=== PATIENT | female | born 1975 | race Caucasian/White ===

== ENCOUNTER 2018-12-25 04:04 | Emergency (ER) | payer OTHER, MEDICAID, SELFPAY ==
[2018-12-25 04:21] VITALS: BP 166/88; PULSE 96; RESP 18; TEMP 36.4; O2SAT 100; BMI 35.2
--- NOTE | 2018-12-25 04:21 | DI.RAD.S_ITS ---
PROCEDURE: XR KNEE LT 3V INDICATIONS: pain and swelling TECHNIQUE: 3 views of the knee were acquired. COMPARISON: None. FINDINGS: Bones: No fractures or dislocations. Joint spaces appear preserved. No suspicious bony lesions. Soft tissues: There is a small to moderate joint effusion. No suspicious soft tissue calcifications. IMPRESSION: 1. No fracture or dislocation. 2. Small to moderate nonspecific joint effusion. Dictated by: Miki Bolton M.D. on 12/25/2018 at 9:31 Approved by: Miki Bolton M.D. on 12/25/2018 at 9:32
--- NOTE | 2018-12-25 04:23 | ED_ITS ---
HPI - General Adult General Chief complaint: Extremity Problem,Nontraumatic Stated complaint: left knee pain, feet pain Time Seen by Provider: 12/25/18 04:17 Source: patient Mode of arrival: ambulatory Limitations: no limitations History of Present Illness HPI narrative: Patient is a 43-year-old female here for evaluation of 2 issues. She states that she is having pain and swelling of her left knee. She states t hat approximately 1 year ago she sustained an injury to her right knee. She states that she ?hyper extended ?her knee. Since then she has had occasional pain and swelling. She states that over the past couple days the swelling has returned and has not improved. No redness. She states that she does have some feeling of instability. Has pain along the inside aspect of her knee. Has not had any x-rays or further evaluation of this by her primary doctor. She is also here for evaluation of swelling to her left foot and redness. she has not had any fevers. Has been in the garden working. Has not tried anything for symptoms prior to arrival. Related Data Previous Rx's Medication Instructions Recorded doxycycline hyclate 100 mg PO Q12H #20 cap 09/20/17 doxycycline hyclate 100 mg PO BID 7 Days #14 tab 12/25/18 Allergies Allergy/AdvReac Type Severity Reaction Status Date / Time acetaminophen [From VICODIN] AdvReac Unknown NAUSEA Unverified 12/09/17 11:49 hydrocodone [From VICODIN] AdvReac Unknown NAUSEA Unverified 12/09/17 11:49 ibuprofen [IBUPROFEN] AdvReac Unknown NAUSEA Unverified 12/09/17 11:49 INGREDIENT: NO KNOWN - NO Allergy Unknown Uncoded 12/09/17 11:49 KNOWN DRUG ALLERGY Review of Systems Constitutional Denies fever(s) ENT Ears, Nose, Mouth, and Throat: Denies disequilibrium Cardiovascular Denies chest pain and Denies dyspnea Respiratory Denies dyspnea Gastrointestinal Gastrointestinal: Denies abdominal pain Musculoskeletal Comments: Left knee pain and swelling Left ankle pain and swelling Integumentary/Breasts Comments: Redness around the left ankle Neurologic Denies paresthesias and Denies disequilibrium Hematologic/Lymphatic Denies easy bleeding and Denies easy bruising [facility] Medical History Healthy adult (Acute) Social History Smoking Status: Current every day smoker Social History Smoking Status: Current every day smoker Exam Initial Vital Signs Initial Vital Signs: Vital Signs Temperature 97.6 F 12/25/18 04:21 Pulse Rate 96 H 12/25/18 04:21 Respiratory Rate 18 12/25/18 04:21 Blood Pressure 166/88 H 12/25/18 04:21 Pulse Oximetry 100 12/25/18 04:21 Resp Effort & Inspection: normal respiratory effort Cardio Rate: regular rate Skin Other: Patient has redness on the inside aspect of her left foot. No blistering. No breaks in the skin noticed. Is warm to the touch Neuro General: alert, awake and oriented x3 Sensory Exam: no sensory deficits noted Extrem Other: Full range of motion of the left ankle. Patient left knee with an effusion. Tenderness to palpation along the medial joint line. No tenderness along the lateral joint line. No tenderness to palpation along the hamstrings. ACL MCL PCL and LCL intact with functional testing. Psych Appearance: grossly normal and well kempt Procedures Joint Aspiration Joint Asp./Inject. 1: Time Out Performed: Yes Side of body: left Joint Aspirated: knee Ultrasound Guidance: No Skin Prep: Chlorhexidine Local Anesthetic: lidocaine 1% Amount of anesthesia used (mL): 5 Needle Size Used: 18G Fluid Obtained: clear Total fluid obtained (mL): 45 Patient Tolerated Procedure: Well and No complications Complications: none Course Orders Ordered: ED Orders 12/25/18 04:21 XR knee LT 3V Stat 12/25/18 05:03 Body Fluid Culture Stat Cell Count w Diff Body Fluid Stat Crystals Body Fluid Stat Discontinued Medications Doxycycline Hyclate (Vibramycin) 100 mg PO NOW ONE Stop: 12/25/18 05:06 Vital Signs - 8 hr 12/25/18 04:21 Temperature 97.6 F Pulse Rate 96 H Respiratory Rate 18 Blood Pressure 166/88 H Pulse Oximetry 100 Medical Decision Making Imaging Data Knee x-ray: Attestation: I personally reviewed and interpreted this imaging study as follows: My impression: No fractures, no dislocations no acute pathology MDM Narrative Medical decision making narrative: X-ray shows no fractures. She does have an effusion of the left knee. I do suspect that she has got a medial meniscal disruption. I informed her that she needed to contact her primary doctor discussed the indications for an MRI. She does have an effusion of the knee. After discussion regarding the risks and benefits to include pain, introducing an infection (which is potentially slightly higher because of the cellulitis of her left foot), and the possible need for further interventions the patient opted to have her knee drained. It was drained as described above. 45 cc of fluid was obtained. This was sent for culture and cell count and crystals. Informed her that these would take several days to come back and that she needs to talk with her primary doctor about the results of these studies. Patient also has redness around her left foot and also with some warmth. She has full range of motion of her left ankle. I have low suspicion for septic joint. There are also no breaks in the skin however given the physical appearance I feel that cellulitis is a possibility. She was given a dose of doxycycline here in the emergency department was sent home with a prescription for this medication. She was given return precautions and follow-up instructions. She expressed understanding and agreement with plan. Discharge Plan Departure Patient Disposition: Home Clinical Impression: Effusion of knee joint, left, Cellulitis of left foot Left knee pain Qualifiers: Chronicity: chronic Qualified Code(s): M25.562 - Pain in left knee Instructions: Cellulitis, How To Perform RICE (Rest, Ice, Compress, Elevate), DI for Knee Effusion Activity Restrictions/Additional Instructions: The fluid that we drained off of your left knee was sent for studies that will take a couple days to return. You need to talk with your primary doctor about the results of these. He also need to talk with your primary doctor about the indications for an MRI of your knee. Take the antibiotics as directed for the infection in your foot. Return to the emergency department for any new or worsening symptoms Prescriptions: New doxycycline hyclate 100 mg tablet 100 mg PO BID 7 Days Qty: 14 RF: 0 No Action doxycycline hyclate 100 MG capsule 100 mg PO Q12H Qty: 20 RF: 0
[2018-12-25] MEDS: DOXYCYCLINE HYCLATE 100 MG TABLET PO (05:09)
[2018-12-25 05:10] VITALS: BP 172/91; PULSE 80; RESP 16; O2SAT 99
[2018-12-25 06:09] LABS: Body Fluid Red Blood Cells 4032 /uL; Body Fluid Tot Nucleated Cells 965 /uL
[2018-12-25 06:57] LABS: Body Fluid Appearance CLOUDY; Body Fluid Clotted? NO CLOTS PRESENT; Body Fluid Color YELLOW
[2018-12-25 07:01] LABS: Mononuclear WBC Body Fluid 98 %; Polynuclear WBC Body Fluid 2 %
== END 2018-12-25 05:10 | disposition home or self-care (01) ==
PROVIDERS: Emergency Provider Emergency Medicine
DX: M25.462 Effusion, left knee (principal); L03.116 Cellulitis of left lower limb
CPT/HCPCS: 20610; 73562; 87070; 87075; 87205; 89051; 89060; 99282; 99283

== ENCOUNTER → 2019-02-03 17:01 | Outpatient (CLI) | payer OTHER, MEDICAID, SELFPAY ==
[2019-02-03 17:53] LABS: Add Manual Diff / Slide Review NO; Basophils Absolute Auto 100 /uL (0-100); Eosinophils Absolute Auto 300 /uL (0-450); Eosinophils Percent Auto 1.7 % (2-4); Hematocrit 46.9 % (36-46); Hemoglobin 15.6 g/dL (12.0-16.0); Lymphocytes Absolute Auto 4100 /uL (1100-4500); Lymphocytes Percent Auto 27.7 % (25-40); Mean Corpuscular HGB Conc 33.3 % (30-36); Mean Corpuscular Hemoglobin 29.6 PG (26-34); Monocytes Absolute Auto 1400 /uL (0-900); Monocytes Percent Auto 9.2 % (3-14); Neutrophils Absolute Auto 8800 /uL (1500-7000); Neutrophils Percent Auto 60.4 % (50-75); Platelet Count 337 X10^3/uL (150-400); Red Blood Cell Count 5.27 X10^6/uL (4.0-5.2); Red Cell Distribution Width 13.9 % (11.6-14.8); White Blood Cell Count 14.6 X10^3/uL (4.5-11.0)
[2019-02-03 18:13] LABS: Blood Urea Nitrogen 15 mg/dL (7-17); Carbon Dioxide 28 mmol/L (22-32); Chloride 102 mmol/L (98-107); Estimated Glomerular Filt Rate > 60.0 mL/min (>60); Glucose 98 mg/dL (70-100); HEMOLYSIS < 15 (0-50); Sodium 138 mmol/L (137-145)
== END ==
PROVIDERS: PCP Hospitalist; Visit Provider Hospitalist
DX: I10 Essential (primary) hypertension (principal)
CPT/HCPCS: 36415; 80048; 85025

== ENCOUNTER 2019-05-04 13:36 | Outpatient (RCR) | payer OTHER, MEDICAID, SELFPAY ==
--- NOTE | 2019-05-04 17:30 | PT.OIE ---
Current Diagnoses Pain in unspecified knee (05/04/19) Past Medical History (Last Updated 02/03/19 @ 17:08 by Marleny Benavides MD) Arthralgia of knee (Acute) Healthy adult (Acute) HTN (hypertension) (Acute) Obesity (Acute) Visit Care Team Role Provider Type Marleny Benavides MD Attending Provider Physician Primary Care Provider Specialty: Internal Medicine Address: [address] [place] [address], [facility] Email: Physical Therapy Initial Evaluation PT-OP-B Current Condition Start: 05/04/19 10:57 Freq: Status: Active Protocol: Document 05/04/19 13:50 (Rec: 05/04/19 14:06 [email or web address]) Current Condition History of Current Condition Onset Date 3 months ago Current Complaints L knee apin History of Current Condition Pt is a 43 yo female who presents to clinic with L knee pain started 3 months ago. She stated she woke up one morning with severe L knee pain and did not recall any significant injury. She was unable to roll in bed and walk , along with significant difficulty bending her knee and any rotation. She describes her knee pain located at medial side of the knee joint. The pain is very sharp, and often feels like hyperextended and twisted. She said her symptoms went away the next day, but it came back after a month. And her pain suddenly got worse again with significant swelling and spontaneous hot/cold sensation . Pt went to ER 2 months ago and x-ray showed negative result, but she had fluid drawn out from her L knee at that time approx 8 oz. She states the result hasnt come back yet since then. She has difficulty squatting, walking stairs with heavy objects and walking with any twisting motions. These movements tend to build her fluid back and increasae her pain. Pt stated her insurance will not allow her to have MRI screening before seeing PT for evaluation. Prior Treatments and Tests X-ray from 3 months ago = negative findings fluid drawn from L knee Treatment Goals Patient/Caregiver Goals 1. Strengthen her knee and reduce pain 2. Being able to squat and climb stairs without discomfort. 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 Pt Take times to perform rotational movements Personal Factors Other Personal Factors That May Effect depression Therapy/Recovery PT-OP-D Balance Start: 05/04/19 10:57 Freq: Status: Active Protocol: Document 05/04/19 13:50 HH (Rec: 05/04/19 17:16 [email or web address]) Balance Tests Single Limb Standing Single Limb- Right >1 min Single Limb- Left 25s PT-OP-G Mobility & Gait Start: 05/04/19 10:57 Freq: Status: Active Protocol: Document 05/04/19 13:50 HH (Rec: 05/04/19 17:16 [email or web address]) OP Gait Assessment Gait Deviations General Gait Pattern Antalgic,Decreased Stride Length,Decreased Feet Clearance Factors Limiting Gait Function Factors Limiting Gait Function Decreased Activity Tolerance, Decreased Strength,Limited Range of Motion,Pain,Poor Balance Comments Gait Comments decreased heel strike on L LE and early heel raise during preswing. Increased WB on RLE also noted. PT-OP-J Posture/Palpation/Skin Start: 05/04/19 10:57 Freq: Status: Active Protocol: Document 05/04/19 13:50 HH (Rec: 05/04/19 17:16 [email or web address]) Posture Evaluation Position Standing Evaluation View Anterior Weight Distribution Weight Shifted Right,Decreased Wt.Bear on (L) Knee Posture (L) Excess Flexion PT-OP-K Range of Motion Start: 05/04/19 10:57 Freq: Status: Active Protocol: Document 05/04/19 13:50 HH (Rec: 05/04/19 17:16 [email or web address]) Knee Goniometric Range of Motion Knee Right Knee ROM WFL Yes Patient Position Supine Flexion Active (degrees) 135 Extension Active (degrees) 0 Left Knee ROM WFL No Patient Position Supine Flexion Active (degrees) 120 Extension Active (degrees) 7 PT-OP-L Special Tests Start: 05/04/19 10:57 Freq: Status: Active Protocol: Document 05/04/19 13:50 HH (Rec: 05/04/19 17:16 [email or web address]) Special Tests Knee Special Tests Valgus- 0 Degrees Test Results +ve Comments pain at medial joint line Valgus- 25 Degrees Test Results +Ve Comments pain at medial joint line Carlitos Test Test Results +VE Comments pain at medial joint line Lateral Pivot Shift Test Results +Ve Comments pain during R trunk rotation while standing on L LE PT-OP-M Strength Start: 05/04/19 10:57 Freq: Status: Active Protocol: Document 05/04/19 13:50 HH (Rec: 05/04/19 17:16 [email or web address]) Knee Strength Knee Manual Muscle Testing Right Flexion (S2) 5 Normal Extension (L3) 5 Normal Left Flexion (S2) 3+ Fair+ Extension (L3) 4+ Good+ Reason Not Measured Pain Comments pain during resisted knee extension (from 70 degrees to 0 degrees) PT-OP-T Assessment and Plan Start: 05/04/19 10:57 Freq: Status: Active Protocol: Document 05/04/19 13:50 (Rec: 05/04/19 17:16 [email or web address]) Physical Therapy Assessment Rehab Potential Rehabilitation Potential Excellent Evaluation Complexity Number of Personal Factors/Comorbidities 1-2 Number of Body Systems Impaired 1-2 Clinical Presentation at Evaluation Stable Impairments Impairments Activity Tolerance,Balance, Functional Activities, Functional Mobility,Gait,Pain, Posture,ROM,Soft Tissue Mobility,Strength,Transfers Goals strength Impairment decreased L knee strength Short Term Goal (STG) pt will increase 1/2 grade of MMT for her L knee so she could recover from squat position without using UE support. STG Duration 6 weeks Skilled Nursing Goal (LTG) pt will increase 1 full grade of MMT for her L knee so she could climb stair with step over pattern without support. LTG Duration 12 weeks ROM Impairment Pt knee ext = 7 and flexion = 120 Skilled Nursing Goal (LTG) Pt will be able to reach L knee ext <4 degrees and flexion >130 degrees so she will be able to perform full squat and single leg stance. LTG Duration 12 weeks LEFS Impairment pt scores 41 for LEFS Short Term Goal (STG) pt will be able to score <30 for LEFS to improve her quality of life. STG Duration 6 weeks Sales Technician Goal (LTG) pt will be able to score <20 for LEFS to improve her quality of life. LTG Duration 12 weeks Assessment Summary Assessment Pt is a low complexity with L knee pain since 3 months ago. Upon assessment, pt possibly suffers from L medial meniscal tear based on findings from positive lateral pivot test, valgus stress test, Carlitos test and appley compression which reproduced her medial joint line pain. Pt also presents decreased overall L knee strength and ROM (ext= 7 and flexion =120), along with decreased leg balance (L=25s, R= >1 min). In my professional opinion, i recommended pt to have MRI screening to rule out meniscal tear or any further tissue damage before she starts physical therapy. I also provided options and prognosis of surgical treatment vs conservative therapy for meniscal tear. Pt will be a good candidate for both options in order to assist pt return to her PLOF through neuromusculat reeducation, overall strengthening, postural mandaeism, ROM training and graded exposure. Physical Therapy Plan Frequency and Duration Frequency of Treatment 2x/Week Duration of Treatment 12 weeks Plan of Care Start Date 05/04/19 Plan of Care End Date 08/02/19 Therapeutic Interventions Therapeutic Interventions Aquatic Therapy,Balance Training,Gait Training,Home Exercise Program,Joint Mobilizations,Manual Therapy, Patient/Caregiver Education, Self-Care/Home Management,Soft Tissue Mobilization,Taping, Therapeutic Activities, Therapeutic Exercises Modalities Cold Pack/Ice Massage,Electric Stimulation,Hot Packs, Infrared Therapy,Ultrasound Hold Physical Therapy Reason For Hold Pending on MRI authorization and result. Next Visit Focus/Plan Next Note Type Re-Evaluation Next Visit Plan tx note / re-eval depends on pt's result
--- NOTE | 2019-06-21 16:29 | PT.OPDS ---
Current Diagnoses Pain in unspecified knee (05/04/19) Visit Care Team Role Provider Type Marleny Benavides MD Attending Provider Physician Primary Care Provider Specialty: Internal Medicine Address: [address] [place] [address], [facility] Email: Visit Number Visit Number 1 Discharge Summary PT-OP-B Current Condition Start: 05/04/19 10:57 Freq: Status: Active Protocol: Document 05/04/19 13:50 (Rec: 05/04/19 14:06 [id number]) Current Condition History of Current Condition Onset Date 3 months ago Current Complaints L knee apin History of Current Condition Pt is a 43 yo female who presents to clinic with L knee pain started 3 months ago. She stated she woke up one morning with severe L knee pain and did not recall any significant injury. She was unable to roll in bed and walk , along with significant difficulty bending her knee and any rotation. She describes her knee pain located at medial side of the knee joint. The pain is very sharp, and often feels like hyperextended and twisted. She said her symptoms went away the next day, but it came back after a month. And her pain suddenly got worse again with significant swelling and spontaneous hot/cold sensation . Pt went to ER 2 months ago and x-ray showed negative result, but she had fluid drawn out from her L knee at that time approx 8 oz. She states the result hasnt come back yet since then. She has difficulty squatting, walking stairs with heavy objects and walking with any twisting motions. These movements tend to build her fluid back and increasae her pain. Pt stated her insurance will not allow her to have MRI screening before seeing PT for evaluation. Prior Treatments and Tests X-ray from 3 months ago = negative findings fluid drawn from L knee Treatment Goals Patient/Caregiver Goals 1. Strengthen her knee and reduce pain 2. Being able to squat and climb stairs without discomfort. 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 Pt Take times to perform rotational movements Personal Factors Other Personal Factors That May Effect depression Therapy/Recovery PT-OP-D Balance Start: 05/04/19 10:57 Freq: Status: Active Protocol: Document 05/04/19 13:50 HH (Rec: 05/04/19 17:16 [email or web address]) Balance Tests Single Limb Standing Single Limb- Right >1 min Single Limb- Left 25s PT-OP-G Mobility & Gait Start: 05/04/19 10:57 Freq: Status: Active Protocol: Document 05/04/19 13:50 HH (Rec: 05/04/19 17:16 [email or web address]) OP Gait Assessment Gait Deviations General Gait Pattern Antalgic,Decreased Stride Length,Decreased Feet Clearance Factors Limiting Gait Function Factors Limiting Gait Function Decreased Activity Tolerance, Decreased Strength,Limited Range of Motion,Pain,Poor Balance Comments Gait Comments decreased heel strike on L LE and early heel raise during preswing. Increased WB on RLE also noted. PT-OP-J Posture/Palpation/Skin Start: 05/04/19 10:57 Freq: Status: Active Protocol: Document 05/04/19 13:50 HH (Rec: 05/04/19 17:16 [email or web address]) Posture Evaluation Position Standing Evaluation View Anterior Weight Distribution Weight Shifted Right,Decreased Wt.Bear on (L) Knee Posture (L) Excess Flexion PT-OP-K Range of Motion Start: 05/04/19 10:57 Freq: Status: Active Protocol: Document 05/04/19 13:50 HH (Rec: 05/04/19 17:16 [email or web address]) Knee Goniometric Range of Motion Knee Right Knee ROM WFL Yes Patient Position Supine Flexion Active (degrees) 135 Extension Active (degrees) 0 Left Knee ROM WFL No Patient Position Supine Flexion Active (degrees) 120 Extension Active (degrees) 7 PT-OP-L Special Tests Start: 05/04/19 10:57 Freq: Status: Active Protocol: Document 05/04/19 13:50 HH (Rec: 05/04/19 17:16 [email or web address]) Special Tests Knee Special Tests Valgus- 0 Degrees Test Results +ve Comments pain at medial joint line Valgus- 25 Degrees Test Results +Ve Comments pain at medial joint line Carlitos Test Test Results +VE Comments pain at medial joint line Lateral Pivot Shift Test Results +Ve Comments pain during R trunk rotation while standing on L LE PT-OP-M Strength Start: 05/04/19 10:57 Freq: Status: Active Protocol: Document 05/04/19 13:50 HH (Rec: 05/04/19 17:16 HH [email or web address]) Knee Strength Knee Manual Muscle Testing Right Flexion (S2) 5 Normal Extension (L3) 5 Normal Left Flexion (S2) 3+ Fair+ Extension (L3) 4+ Good+ Reason Not Measured Pain Comments pain during resisted knee extension (from 70 degrees to 0 degrees) PT-OP-T Assessment and Plan Start: 05/04/19 10:57 Freq: Status: Active Protocol: Document 06/21/19 16:27 HH (Rec: 06/21/19 16:29 [email or web address]) Physical Therapy Plan Discharge Physical Therapy Discharge Reasons No Longer Attending PT Discharge Comments Called pt via phone and she stated she just went to see her MD to request for MRI screen. She had kidney infection recently which limits her mobility and her symptoms has been the same since injury. D/C from PT today.
== END 2019-05-05 12:38 ==
LOC: PHYS 13:36
PROVIDERS: PCP Hospitalist; Visit Provider Hospitalist
DX: M25.569 Pain in unspecified knee (principal)
CPT/HCPCS: 97161

== ENCOUNTER 2019-06-13 14:08 | Emergency (ER) | payer OTHER, MEDICAID, SELFPAY ==
[2019-06-13] VITALS (7 sets, daily range): BP systolic 157–188; BP diastolic 73–98; PULSE 95–109; RESP 17–24; TEMP 37.2–37.7; O2SAT 90–99; BMI 36.0
[2019-06-13 14:40] LABS: Bilirubin Urine UA NEGATIVE (NEGATIVE); Color Urine UA YELLOW; Glucose Urine UA NEGATIVE (Negative); Ketones Urine UA NEGATIVE (NEGATIVE); Leukocyte Esterase Urine UA 3+ (NEGATIVE); Nitrite Urine UA NEGATIVE (Negative); Occult Blood Urine UA 3+ (Negative); Protein Urine UA 2+ (Negative); Urobilinogen Urine UA 0.2 E.U./dL (0.2)
--- NOTE | 2019-06-13 14:43 | DI.RAD.S_ITS ---
PROCEDURE: XR CHEST 1V INDICATIONS: chest pain TECHNIQUE: One view of the chest was acquired. COMPARISON: None. FINDINGS: Surgical changes and devices: None. Lungs and pleura: Lungs are clear. No pleural effusions or pneumothorax. Mediastinum: Mediastinal contours appear normal. Heart size is normal. Bones and chest wall: No suspicious bony lesions. Overlying soft tissues appear unremarkable. IMPRESSION: No acute cardiopulmonary findings. Dictated by: Zuri Valentine M.D. on 06/13/2019 at 14:59 Approved by: Zuri Valentine M.D. on 06/13/2019 at 14:59
[2019-06-13 14:46] LABS: Pregnancy Test Urine Negative (Negative)
[2019-06-13 15:04] LABS: Appearance Urine UA Slightly Cloudy; pH Urine UA 7.5 (4.5-8.0)
[2019-06-13 15:04] LABS: Add Manual Diff / Slide Review NO; Basophils Absolute Auto 100 /uL (0-100); Basophils Percent Auto 0.6 % (0-2); Eosinophils Absolute Auto 100 /uL (0-450); Eosinophils Percent Auto 0.6 % (2-4); Hematocrit 44.5 % (36-46); Hemoglobin 14.9 g/dL (12.0-16.0); Lymphocytes Absolute Auto 1600 /uL (1100-4500); Lymphocytes Percent Auto 10.3 % (25-40); Mean Corpuscular HGB Conc 33.4 % (30-36); Mean Corpuscular Hemoglobin 29.7 PG (26-34); Mean Corpuscular Volume 88.9 fL (80-100); Monocytes Absolute Auto 1500 /uL (0-900); Monocytes Percent Auto 10.2 % (3-14); Neutrophils Absolute Auto 11900 /uL (1500-7000); Neutrophils Percent Auto 78.3 % (50-75); Platelet Count 271 X10^3/uL (150-400); Red Blood Cell Count 5.01 X10^6/uL (4.0-5.2); Red Cell Distribution Width 13.6 % (11.6-14.8); White Blood Cell Count 15.2 X10^3/uL (4.5-11.0)
[2019-06-13] MEDS: MORPHINE 2 MG/ML INJ IV (15:05)
[2019-06-13] MEDS: ONDANSETRON 4 MG/2 ML INJ IV ×2 (15:05→19:18)
[2019-06-13] MEDS: SODIUM CHLORIDE 0.9% 1,000 ML 1000 ML IV ×2 (15:06→16:43)
[2019-06-13] MEDS: KETOROLAC 60 MG/2 ML VIAL 30 MG IV (15:06)
[2019-06-13 15:12] LABS: Bacteria Urine Moderate (10-30); Culture Indicated Urine Specimen Cultured; RBC Urine 10-30/HPF (0-5/HPF); Squamous Epithelial Cell Urine None Seen (0-5/HPF); WBC Urine >100/HPF (0-5/HPF)
[2019-06-13 15:14] LABS: Prothrombin Time 11.8 SECONDS (10.1-12.7)
[2019-06-13 15:16] LABS: PTT Partial Thromboplastin Tim 36 SECONDS (26.4-36.2)
[2019-06-13 15:19] LABS: Influenza A and B by PCR Rapid Negative (Negative)
[2019-06-13 15:20] LABS: Creatine Kinase 170 U/L (30-135)
[2019-06-13 15:28] LABS: Alanine Aminotransferase 21 IU/L (9-52); Albumin 4.2 g/dL (3.5-5.0); Albumin Globulin Ratio 1.2 (1.0-2.8); Alkaline Phosphatase 73 U/L (38-126); Aspartate Aminotransferase 25 IU/L (14-36); Blood Urea Nitrogen 12 mg/dL (7-17); Calcium 9.4 mg/dL (8.4-10.2); Carbon Dioxide 27 mmol/L (22-32); Chloride 100 mmol/L (98-107); Estimated Glomerular Filt Rate > 60.0 mL/min (>60); Globulin 3.5 g/dL (1.7-4.1); Glucose 120 mg/dL (70-100); HEMOLYSIS 34 (0-50); Lipase 36 U/L (23-300); Potassium 4.2 mmol/L (3.4-5.1); Sodium 136 mmol/L (137-145); Total Protein 7.7 g/dL (6.3-8.2)
[2019-06-13 15:33] LABS: Troponin I < 0.012 ng/mL (0.01-0.034)
[2019-06-13 15:36] LABS: CKMB % Relative Index 1.4 % (1.5-5.0); Creatine Kinase MB 2.33 ng/mL (<2.37)
[2019-06-13 15:45] LABS: Amylase 52 U/L (30-110)
--- NOTE | 2019-06-13 16:08 | ED_ITS ---
HPI - Abdominal Pain <IVY Cordero - Last Filed: 06/13/19 19:54> General Chief Complaint: Abdominal Pain Stated Complaint: Stomach pain, whole body hurts, lots of pain Time Seen by Provider: 06/13/19 14:24 Source: patient Mode of arrival: Ambulatory Limitations: no limitations History of Present Illness HPI narrative: The patient is a 43-year-old female current smoker with history of hypertension who presents with a chief complaint of abdominal pain, fevers, chills, dysuria. She states she started having dysuria urgency and frequency 2- 3 days ago. Today she had lower back pain. She denies any fevers. She complains of nausea, no vomiting. She states that she has muscle aches and chills and that her ?whole body hurts. She states that she is having headaches, has epigastric pain that radiates around her abdomen. She states it radiates up into the left side of her chest on occasion. She has not taken anything to feel better. Related Data Home Medications Medication Instructions Recorded Confirmed acetaminophen 650 mg 650 mg PO ONCE 02/03/19 02/03/19 tablet,extended release acetaminophen-caffeine 500 mg-65 1 tab PO Q6H PRN 02/03/19 02/03/19 mg tablet Previous Rx's Medication Instructions Recorded meloxicam 15 mg tablet 15 mg PO DAILY #20 tab 02/03/19 lisinopril 10 mg tablet 10 mg PO DAILY #30 tab 03/08/19 ciprofloxacin HCl [Cipro] 500 mg PO BID #14 tab 06/13/19 ondansetron 4 mg PO Q6H PRN #20 tab 06/13/19 Allergies Allergy/AdvReac Type Severity Reaction Status Date / Time acetaminophen [From VICODIN] AdvReac Unknown NAUSEA Verified 06/13/19 15:03 hydrocodone [From VICODIN] AdvReac Unknown NAUSEA Verified 06/13/19 15:03 ibuprofen [IBUPROFEN] AdvReac Unknown NAUSEA Verified 06/13/19 15:03 Review of Systems <IVY Cordero - Last Filed: 06/13/19 19:54> Review of Systems Narrative: GENERAL: Denies chills, fatigue, malaise, fever, sweats. HEENT: Denies sinus pain, ear pain, sore throat, difficulty swallowing, dizziness. RESPIRATORY: See HPI CARDIOVASCULAR: Denies chest pain, palpitations, orthopnea, edema, GASTROINTESTINAL: See HPI : See HPI MUSCULOSKELETAL: denies weakness, joint pain, or bony pain SKIN: Denies rash, skin lesions, or other NEUROLOGIC: Denies weakness, headache, numbness, change in speech, confusion, seizures, incoordination. PSYCHIATRIC: No concerning psychosocial issues. 12 point review of systems is negative except for those stated above Patient History <IVY Cordero - Last Filed: 06/13/19 19:54> Medical History Medical History Arthralgia of knee (Acute) Healthy adult (Acute) HTN (hypertension) (Acute) Obesity (Acute) Social History Social History Smoking Status: Current every day smoker Substance Use Type: does not use Exam <IVY Cordero - Last Filed: 06/13/19 19:54> Narrative Exam Narrative: GENERAL: This is an anxious appearing obese female HEAD: Atraumatic. Normocephalic. No temporal or scalp tenderness. EYES: Pupils equal round and reactive. Extraocular motions intact. No scleral icterus. No injection or drainage. ENT: Nose without bleeding, purulent drainage or septal hematoma. Throat without erythema, tonsillar hypertrophy or exudate. Uvula midline. Airway patent. NECK: Trachea midline. No JVD or lymphadenopathy. Supple, nontender, no meningeal signs. CARDIOVASCULAR: Regular rate and rhythm RESPIRATORY: Clear to auscultation. Breath sounds equal bilaterally. No wheezes, rales, or rhonchi. No cough. No increased respiratory effort. No accessory muscle use. GASTROINTESTINAL: Abdomen soft, diffusely tender nondistended. No hepato- splenomegaly, or palpable masses. No guarding. Active bowel sounds all 4 quadrants EXTREMITIES: No clubbing, cyanosis, or edema. No joint tenderness, effusion, or edema noted. BACK: Nontender without deformity or crepitance. No flank tenderness. NEURO: AOx3. SKIN: No rash or erythema visible skin. Initial Vital Signs Initial Vital Signs: Vital Signs Temperature 99.2 F 06/13/19 14:10 Pulse Rate 95 H 06/13/19 14:10 Respiratory Rate 24 06/13/19 14:10 Blood Pressure 158/98 H 06/13/19 14:10 Pulse Oximetry 99 06/13/19 14:10 <Eliezer Canales DO - Last Filed: 06/14/19 07:04> Initial Vital Signs Initial Vital Signs: Vital Signs Temperature 99.2 F 06/13/19 14:10 Pulse Rate 95 H 06/13/19 14:10 Respiratory Rate 24 06/13/19 14:10 Blood Pressure 158/98 H 06/13/19 14:10 Pulse Oximetry 99 06/13/19 14:10 Scores <IVY Cordero - Last Filed: 06/13/19 19:54> GCS [place] coma scale eye opening: Spontaneous [place] coma scale verbal response: Orientated [place] coma scale motor response: Obey commands [place] coma scale total score: 15 HEART Score Heart Score history: Slightly Suspicious Heart Score EKG: Normal Heart Score Age: < 45 years old Heart Score risk factors: 1-2 risk factors Heart Score troponin: < or = to normal limit Heart Score Total: 1 Course <IVY Cordero - Last Filed: 06/13/19 19:54> Orders Ordered: Discontinued Medications Acetaminophen (Tylenol) 975 mg PO NOW ONE Stop: 06/13/19 19:06 Last Admin: 06/13/19 19:18 Dose: 975 mg Documented by: MARLIN Ciprofloxacin (Cipro) 500 mg PO NOW ONE Stop: 06/13/19 17:29 Last Admin: 06/13/19 18:06 Dose: 500 mg Documented by: MARLIN Sodium Chloride (Normal Saline 0.9%) 1,000 mls @ 1,000 mls/hr IV BOLUS ONE Stop: 06/13/19 15:43 Last Infusion: 06/13/19 16:27 Dose: 0 mls/hr Documented by: Admin: 06/13/19 15:06 Dose: 1,000 mls/hr Documented by: MARLIN Sodium Chloride (Normal Saline 0.9%) 1,000 mls @ 1,000 mls/hr IV BOLUS ONE Stop: 06/13/19 17:30 Last Infusion: 06/13/19 18:08 Dose: 0 mls/hr Documented by: Admin: 06/13/19 16:43 Dose: 1,000 mls/hr Documented by: YEN Ketorolac Tromethamine (Toradol) 30 mg IV NOW ONE Stop: 06/13/19 14:45 Last Admin: 06/13/19 15:06 Dose: 30 mg Documented by: MARLIN Morphine Sulfate (Morphine) 2 mg IV NOW ONE Stop: 06/13/19 14:45 Last Admin: 06/13/19 15:05 Dose: 2 mg Documented by: MARLIN Ondansetron HCl (Zofran) 4 mg IV NOW ONE Stop: 06/13/19 14:45 Last Admin: 06/13/19 15:05 Dose: 4 mg Documented by: MARLIN Ondansetron HCl (Zofran) 4 mg IV NOW ONE Stop: 06/13/19 19:06 Last Admin: 06/13/19 19:18 Dose: 4 mg Documented by: MARLIN Vital Signs Vital signs: Vital Signs - 8 hr 06/13/19 14:10 06/13/19 14:30 06/13/19 15:08 Temperature 99.2 F Pulse Rate 95 H 101 H 101 H Respiratory Rate 24 21 17 Blood Pressure 158/98 H Blood Pressure [Left Arm] 188/89 H 181/89 H Pulse Oximetry 99 97 96 06/13/19 16:00 06/13/19 16:50 06/13/19 19:18 Temperature 98.9 F 99.9 F H Pulse Rate 109 H Respiratory Rate 24 Blood Pressure Blood Pressure [Left Arm] 159/82 H Pulse Oximetry 90 L 06/13/19 19:25 Temperature 99.9 F H Pulse Rate 98 H Respiratory Rate 23 Blood Pressure Blood Pressure [Left Arm] 157/73 H Pulse Oximetry 96 <Eliezer Canales DO - Last Filed: 06/14/19 07:04> Orders Ordered: Discontinued Medications Acetaminophen (Tylenol) 975 mg PO NOW ONE Stop: 06/13/19 19:06 Last Admin: 06/13/19 19:18 Dose: 975 mg Documented by: MARLIN Ciprofloxacin (Cipro) 500 mg PO NOW ONE Stop: 06/13/19 17:29 Last Admin: 06/13/19 18:06 Dose: 500 mg Documented by: MARLIN Sodium Chloride (Normal Saline 0.9%) 1,000 mls @ 1,000 mls/hr IV BOLUS ONE Stop: 06/13/19 15:43 Last Infusion: 06/13/19 16:27 Dose: 0 mls/hr Documented by: Admin: 06/13/19 15:06 Dose: 1,000 mls/hr Documented by: MARLIN Sodium Chloride (Normal Saline 0.9%) 1,000 mls @ 1,000 mls/hr IV BOLUS ONE Stop: 06/13/19 17:30 Last Infusion: 06/13/19 18:08 Dose: 0 mls/hr Documented by: Admin: 06/13/19 16:43 Dose: 1,000 mls/hr Documented by: YEN Ketorolac Tromethamine (Toradol) 30 mg IV NOW ONE Stop: 06/13/19 14:45 Last Admin: 06/13/19 15:06 Dose: 30 mg Documented by: MARLIN Morphine Sulfate (Morphine) 2 mg IV NOW ONE Stop: 06/13/19 14:45 Last Admin: 06/13/19 15:05 Dose: 2 mg Documented by: MARLIN Ondansetron HCl (Zofran) 4 mg IV NOW ONE Stop: 06/13/19 14:45 Last Admin: 06/13/19 15:05 Dose: 4 mg Documented by: MARLIN Ondansetron HCl (Zofran) 4 mg IV NOW ONE Stop: 06/13/19 19:06 Last Admin: 06/13/19 19:18 Dose: 4 mg Documented by: MARLIN Vital Signs Vital signs: Vital Signs - 8 hr 06/13/19 14:10 06/13/19 14:30 06/13/19 15:08 Temperature 99.2 F Pulse Rate 95 H 101 H 101 H Respiratory Rate 24 21 17 Blood Pressure 158/98 H Blood Pressure [Left Arm] 188/89 H 181/89 H Pulse Oximetry 99 97 96 06/13/19 16:00 06/13/19 16:50 06/13/19 19:18 Temperature 98.9 F 99.9 F H Pulse Rate 109 H Respiratory Rate 24 Blood Pressure Blood Pressure [Left Arm] 159/82 H Pulse Oximetry 90 L 06/13/19 19:25 Temperature 99.9 F H Pulse Rate 98 H Respiratory Rate 23 Blood Pressure Blood Pressure [Left Arm] 157/73 H Pulse Oximetry 96 MDM - Abdominal Pain <Gayathri Caribou, INSURANCE TERRITORY MANAGER-BC - Last Filed: 06/13/19 19:54> Lab Data Result diagrams: 06/13/19 14:50 06/13/19 14:50 Labs: Lab Results 06/13/19 06/13/19 06/13/19 Range/Units 14:37 14:37 14:50 WBC 15.2 H (4.5-11.0) X10^3/uL RBC 5.01 (4.0-5.2) X10^6/uL Hgb 14.9 (12.0-16.0) g/dL Hct 44.5 (36-46) % MCV 88.9 (80-100) fL MCH 29.7 (26-34) PG MCHC 33.4 (30-36) % RDW 13.6 (11.6-14.8) % Plt Count 271 (150-400) X10^3/uL Neut % (Auto) 78.3 H (50-75) % Lymph % (Auto) 10.3 L (25-40) % [place] % (Auto) 10.2 (3-14) % Eos % (Auto) 0.6 L (2-4) % Baso % (Auto) 0.6 (0-2) % Neut # (Auto) 80774 H (0890-7377) /uL Lymph # (Auto) 1600 (0167-8870) /uL [place] # (Auto) 1500 H (0-900) /uL Eos # (Auto) 100 (0-450) /uL Baso # (Auto) 100 (0-100) /uL PT (10.1-12.7) SECONDS INR (0.9-1.3) APTT (26.4-36.2) SECONDS D-Dimer (<230) ng/mL Sodium (137-145) mmol/L Potassium (3.4-5.1) mmol/L Chloride (98-107) mmol/L Carbon Dioxide (22-32) mmol/L BUN (7-17) mg/dL Creatinine (0.52-1.04) mg/dL Estimated GFR (>60) mL/min BUN/Creatinine Ratio (6-22) Glucose (70-100) mg/dL Calcium (8.4-10.2) mg/dL Total Bilirubin (0.2-1.3) mg/dL AST (14-36) IU/L ALT (9-52) IU/L Alkaline Phosphatase (38-126) U/L Total Creatine Kinase (30-135) U/L CK-MB (CK-2) (<2.37) ng/mL CK-MB (CK-2) Rel Index (1.5-5.0) % Troponin I (0.01-0.034) ng/mL Total Protein (6.3-8.2) g/dL Albumin (3.5-5.0) g/dL Globulin (1.7-4.1) g/dL Albumin/Globulin Ratio (1.0-2.8) Amylase (30-110) U/L Lipase (23-300) U/L Procalcitonin (<0.5) ng/mL Urine Color Yellow Urine Appearance Slightly cloudy Urine pH 7.5 (4.5-8.0) Ur Specific [place] 1.010 (1.000-1.035) Urine Protein 2+ H (Negative) Urine Glucose (UA) Negative (Negative) g/dL Urine Ketones Negative (NEGATIVE) Urine Occult Blood 3+ H (Negative) Urine Nitrate Negative (Negative) Urine Bilirubin Negative (NEGATIVE) Urine Urobilinogen 0.2 (0.2) E.U./dL Ur Leukocyte Esterase 3+ H (NEGATIVE) Urine RBC 10-30/hpf H (0-5/HPF) Urine WBC >100/hpf H (0-5/HPF) Ur Squamous Epith Cells None seen (0-5/HPF) Urine Bacteria Moderate (10-30) H (None) Ur Culture Indicated? Specimen cultured Urine Test Negative (Negative) Influenza A & B (PCR) (Negative) 06/13/19 06/13/19 06/13/19 Range/Units 14:50 14:50 14:50 WBC (4.5-11.0) X10^3/uL RBC (4.0-5.2) X10^6/uL Hgb (12.0-16.0) g/dL Hct (36-46) % MCV (80-100) fL MCH (26-34) PG MCHC (30-36) % RDW (11.6-14.8) % Plt Count (150-400) X10^3/uL Neut % (Auto) (50-75) % Lymph % (Auto) (25-40) % [place] % (Auto) (3-14) % Eos % (Auto) (2-4) % Baso % (Auto) (0-2) % Neut # (Auto) (2108-0383) /uL Lymph # (Auto) (0702-3870) /uL [place] # (Auto) (0-900) /uL Eos # (Auto) (0-450) /uL Baso # (Auto) (0-100) /uL PT 11.8 (10.1-12.7) SECONDS INR 1.0 (0.9-1.3) APTT 36 (26.4-36.2) SECONDS D-Dimer (<230) ng/mL Sodium 136 L (137-145) mmol/L Potassium 4.2 (3.4-5.1) mmol/L Chloride 100 (98-107) mmol/L Carbon Dioxide 27 (22-32) mmol/L BUN 12 (7-17) mg/dL Creatinine 1.00 (0.52-1.04) mg/dL Estimated GFR > 60.0 (>60) mL/min BUN/Creatinine Ratio 12.0 (6-22) Glucose 120 H (70-100) mg/dL Calcium 9.4 (8.4-10.2) mg/dL Total Bilirubin 1.0 (0.2-1.3) mg/dL AST 25 (14-36) IU/L ALT 21 (9-52) IU/L Alkaline Phosphatase 73 (38-126) U/L Total Creatine Kinase 170 H (30-135) U/L CK-MB (CK-2) 2.33 (<2.37) ng/mL CK-MB (CK-2) Rel Index 1.4 L (1.5-5.0) % Troponin I < 0.012 (0.01-0.034) ng/mL Total Protein 7.7 (6.3-8.2) g/dL Albumin 4.2 (3.5-5.0) g/dL Globulin 3.5 (1.7-4.1) g/dL Albumin/Globulin Ratio 1.2 (1.0-2.8) Amylase (30-110) U/L Lipase 36 (23-300) U/L Procalcitonin (<0.5) ng/mL Urine Color Urine Appearance Urine pH (4.5-8.0) Ur Specific [place] (1.000-1.035) Urine Protein (Negative) Urine Glucose (UA) (Negative) g/dL Urine Ketones (NEGATIVE) Urine Occult Blood (Negative) Urine Nitrate (Negative) Urine Bilirubin (NEGATIVE) Urine Urobilinogen (0.2) E.U./dL Ur Leukocyte Esterase (NEGATIVE) Urine RBC (0-5/HPF) Urine WBC (0-5/HPF) Ur Squamous Epith Cells (0-5/HPF) Urine Bacteria (None) Ur Culture Indicated? Urine Test (Negative) Influenza A & B (PCR) (Negative) 06/13/19 06/13/19 06/13/19 Range/Units 14:50 14:50 14:50 WBC (4.5-11.0) X10^3/uL RBC (4.0-5.2) X10^6/uL Hgb (12.0-16.0) g/dL Hct (36-46) % MCV (80-100) fL MCH (26-34) PG MCHC (30-36) % RDW (11.6-14.8) % Plt Count (150-400) X10^3/uL Neut % (Auto) (50-75) % Lymph % (Auto) (25-40) % [place] % (Auto) (3-14) % Eos % (Auto) (2-4) % Baso % (Auto) (0-2) % Neut # (Auto) (6697-7233) /uL Lymph # (Auto) (4009-0655) /uL [place] # (Auto) (0-900) /uL Eos # (Auto) (0-450) /uL Baso # (Auto) (0-100) /uL PT (10.1-12.7) SECONDS INR (0.9-1.3) APTT (26.4-36.2) SECONDS D-Dimer (<230) ng/mL Sodium (137-145) mmol/L Potassium (3.4-5.1) mmol/L Chloride (98-107) mmol/L Carbon Dioxide (22-32) mmol/L BUN (7-17) mg/dL Creatinine (0.52-1.04) mg/dL Estimated GFR (>60) mL/min BUN/Creatinine Ratio (6-22) Glucose (70-100) mg/dL Calcium (8.4-10.2) mg/dL Total Bilirubin (0.2-1.3) mg/dL AST (14-36) IU/L ALT (9-52) IU/L Alkaline Phosphatase (38-126) U/L Total Creatine Kinase (30-135) U/L CK-MB (CK-2) (<2.37) ng/mL CK-MB (CK-2) Rel Index (1.5-5.0) % Troponin I (0.01-0.034) ng/mL Total Protein (6.3-8.2) g/dL Albumin (3.5-5.0) g/dL Globulin (1.7-4.1) g/dL Albumin/Globulin Ratio (1.0-2.8) Amylase 52 (30-110) U/L Lipase (23-300) U/L Procalcitonin 0.12 (<0.5) ng/mL Urine Color Urine Appearance Urine pH (4.5-8.0) Ur Specific [place] (1.000-1.035) Urine Protein (Negative) Urine Glucose (UA) (Negative) g/dL Urine Ketones (NEGATIVE) Urine Occult Blood (Negative) Urine Nitrate (Negative) Urine Bilirubin (NEGATIVE) Urine Urobilinogen (0.2) E.U./dL Ur Leukocyte Esterase (NEGATIVE) Urine RBC (0-5/HPF) Urine WBC (0-5/HPF) Ur Squamous Epith Cells (0-5/HPF) Urine Bacteria (None) Ur Culture Indicated? Urine Test (Negative) Influenza A & B (PCR) Negative (Negative) 06/13/19 06/13/19 Range/Units 14:50 17:45 WBC (4.5-11.0) X10^3/uL RBC (4.0-5.2) X10^6/uL Hgb (12.0-16.0) g/dL Hct (36-46) % MCV (80-100) fL MCH (26-34) PG MCHC (30-36) % RDW (11.6-14.8) % Plt Count (150-400) X10^3/uL Neut % (Auto) (50-75) % Lymph % (Auto) (25-40) % [place] % (Auto) (3-14) % Eos % (Auto) (2-4) % Baso % (Auto) (0-2) % Neut # (Auto) (9375-2926) /uL Lymph # (Auto) (6810-9909) /uL [place] # (Auto) (0-900) /uL Eos # (Auto) (0-450) /uL Baso # (Auto) (0-100) /uL PT (10.1-12.7) SECONDS INR (0.9-1.3) APTT (26.4-36.2) SECONDS D-Dimer 375 H (<230) ng/mL Sodium (137-145) mmol/L Potassium (3.4-5.1) mmol/L Chloride (98-107) mmol/L Carbon Dioxide (22-32) mmol/L BUN (7-17) mg/dL Creatinine (0.52-1.04) mg/dL Estimated GFR (>60) mL/min BUN/Creatinine Ratio (6-22) Glucose (70-100) mg/dL Calcium (8.4-10.2) mg/dL Total Bilirubin (0.2-1.3) mg/dL AST (14-36) IU/L ALT (9-52) IU/L Alkaline Phosphatase (38-126) U/L Total Creatine Kinase 148 H (30-135) U/L CK-MB (CK-2) 2.44 H (<2.37) ng/mL CK-MB (CK-2) Rel Index 1.6 (1.5-5.0) % Troponin I 0.020 (0.01-0.034) ng/mL Total Protein (6.3-8.2) g/dL Albumin (3.5-5.0) g/dL Globulin (1.7-4.1) g/dL Albumin/Globulin Ratio (1.0-2.8) Amylase (30-110) U/L Lipase (23-300) U/L Procalcitonin (<0.5) ng/mL Urine Color Urine Appearance Urine pH (4.5-8.0) Ur Specific [place] (1.000-1.035) Urine Protein (Negative) Urine Glucose (UA) (Negative) g/dL Urine Ketones (NEGATIVE) Urine Occult Blood (Negative) Urine Nitrate (Negative) Urine Bilirubin (NEGATIVE) Urine Urobilinogen (0.2) E.U./dL Ur Leukocyte Esterase (NEGATIVE) Urine RBC (0-5/HPF) Urine WBC (0-5/HPF) Ur Squamous Epith Cells (0-5/HPF) Urine Bacteria (None) Ur Culture Indicated? Urine Test (Negative) Influenza A & B (PCR) (Negative) Imaging Data Chest x-ray: Radiologist's impression: [address] [address] XRay Report Signed Patient: Marie Collins LMR#: [id number] : 1975Acct:[id number] Age/Sex: 43 / FDate of Service: 06/13/19 Loc: ED Accession Number: [id number] Procedure: XR chest 1V Ordering Provider: Gayathri Esposito- PROCEDURE: XR CHEST 1V INDICATIONS: chest pain TECHNIQUE: One view of the chest was acquired. COMPARISON: None. FINDINGS: Surgical changes and devices: None. Lungs and pleura: Lungs are clear. No pleural effusions or pneumothorax. Mediastinum: Mediastinal contours appear normal. Heart size is normal. Bones and chest wall: No suspicious bony lesions. Overlying soft tissues appear unremarkable. IMPRESSION: No acute cardiopulmonary findings. Dictated by: Zuri Valentine M.D. on 06/13/2019 at 14:59 Approved by: Zuri Valentine M.D. on 06/13/2019 at 14:59 ECG Data Attestation: I personally reviewed and interpreted this ECG as follows: Interpretation: Sinus rhythm. Ventricular rate 96. P.r. interval 139. QRS duration 101. MDM Narrative Medical decision making narrative: The patient is a 43-year-old female who presents with various complaints including muscle aches radiating up her back and chest, chills, dysuria urgency or frequency, back pain for 2-3 days. The patient was afebrile on her initial evaluation. Basic lab work was done, and she has slight leukocytosis with a white count of 15. The patient's urine was obtained due to UTI symptoms, which came back indicative of a urinary tract infection with bacteria leukocyte esterase and blood. The patient has bilateral CVA tenderness, low-grade fevers and leukocytosis, indicating concerns for pyelonephritis. Her initial troponin came back negative, and her 2nd troponin also came back negative. This was done as due to her back and chest aches. The patient's D-dimer was less than 500, but above 250. I discussed this with Dr Canales and has the patient does not present with high concern for PE (shortness of breath hypoxic etc), I did not obtain to chest CT PA to evaluate for possible PE at this point time. The patient's workup in exam indicates some pyelonephritis. She was able to keep down Cipro. I discussed at length taking the whole course of antibiotic, the importance of follow-up with her primary care provider, and coming back to the emergency department if unable to keep down fluids or any acute concerns. Patient states understanding and has no questions or concerns upon discharge. She states understanding return precautions as well as follow-up care. She has been eating and drinking throughout her stay in the emergency department <Eliezer Canales, DO - Last Filed: 06/14/19 07:04> Lab Data Labs: Lab Results 06/13/19 06/13/19 06/13/19 Range/Units 14:37 14:37 14:50 WBC 15.2 H (4.5-11.0) X10^3/uL RBC 5.01 (4.0-5.2) X10^6/uL Hgb 14.9 (12.0-16.0) g/dL Hct 44.5 (36-46) % MCV 88.9 (80-100) fL MCH 29.7 (26-34) PG MCHC 33.4 (30-36) % RDW 13.6 (11.6-14.8) % Plt Count 271 (150-400) X10^3/uL Neut % (Auto) 78.3 H (50-75) % Lymph % (Auto) 10.3 L (25-40) % [place] % (Auto) 10.2 (3-14) % Eos % (Auto) 0.6 L (2-4) % Baso % (Auto) 0.6 (0-2) % Neut # (Auto) 36233 H (7784-1840) /uL Lymph # (Auto) 1600 (4946-1578) /uL [place] # (Auto) 1500 H (0-900) /uL Eos # (Auto) 100 (0-450) /uL Baso # (Auto) 100 (0-100) /uL PT (10.1-12.7) SECONDS INR (0.9-1.3) APTT (26.4-36.2) SECONDS D-Dimer (<230) ng/mL Sodium (137-145) mmol/L Potassium (3.4-5.1) mmol/L Chloride (98-107) mmol/L Carbon Dioxide (22-32) mmol/L BUN (7-17) mg/dL Creatinine (0.52-1.04) mg/dL Estimated GFR (>60) mL/min BUN/Creatinine Ratio (6-22) Glucose (70-100) mg/dL Calcium (8.4-10.2) mg/dL Total Bilirubin (0.2-1.3) mg/dL AST (14-36) IU/L ALT (9-52) IU/L Alkaline Phosphatase (38-126) U/L Total Creatine Kinase (30-135) U/L CK-MB (CK-2) (<2.37) ng/mL CK-MB (CK-2) Rel Index (1.5-5.0) % Troponin I (0.01-0.034) ng/mL Total Protein (6.3-8.2) g/dL Albumin (3.5-5.0) g/dL Globulin (1.7-4.1) g/dL Albumin/Globulin Ratio (1.0-2.8) Amylase (30-110) U/L Lipase (23-300) U/L Procalcitonin (<0.5) ng/mL Urine Color Yellow Urine Appearance Slightly cloudy Urine pH 7.5 (4.5-8.0) Ur Specific [place] 1.010 (1.000-1.035) Urine Protein 2+ H (Negative) Urine Glucose (UA) Negative (Negative) g/dL Urine Ketones Negative (NEGATIVE) Urine Occult Blood 3+ H (Negative) Urine Nitrate Negative (Negative) Urine Bilirubin Negative (NEGATIVE) Urine Urobilinogen 0.2 (0.2) E.U./dL Ur Leukocyte Esterase 3+ H (NEGATIVE) Urine RBC 10-30/hpf H (0-5/HPF) Urine WBC >100/hpf H (0-5/HPF) Ur Squamous Epith Cells None seen (0-5/HPF) Urine Bacteria Moderate (10-30) H (None) Ur Culture Indicated? Specimen cultured Urine Test Negative (Negative) Influenza A & B (PCR) (Negative) 06/13/19 06/13/19 06/13/19 Range/Units 14:50 14:50 14:50 WBC (4.5-11.0) X10^3/uL RBC (4.0-5.2) X10^6/uL Hgb (12.0-16.0) g/dL Hct (36-46) % MCV (80-100) fL MCH (26-34) PG MCHC (30-36) % RDW (11.6-14.8) % Plt Count (150-400) X10^3/uL Neut % (Auto) (50-75) % Lymph % (Auto) (25-40) % [place] % (Auto) (3-14) % Eos % (Auto) (2-4) % Baso % (Auto) (0-2) % Neut # (Auto) (5505-0120) /uL Lymph # (Auto) (2734-4438) /uL [place] # (Auto) (0-900) /uL Eos # (Auto) (0-450) /uL Baso # (Auto) (0-100) /uL PT 11.8 (10.1-12.7) SECONDS INR 1.0 (0.9-1.3) APTT 36 (26.4-36.2) SECONDS D-Dimer (<230) ng/mL Sodium 136 L (137-145) mmol/L Potassium 4.2 (3.4-5.1) mmol/L Chloride 100 (98-107) mmol/L Carbon Dioxide 27 (22-32) mmol/L BUN 12 (7-17) mg/dL Creatinine 1.00 (0.52-1.04) mg/dL Estimated GFR > 60.0 (>60) mL/min BUN/Creatinine Ratio 12.0 (6-22) Glucose 120 H (70-100) mg/dL Calcium 9.4 (8.4-10.2) mg/dL Total Bilirubin 1.0 (0.2-1.3) mg/dL AST 25 (14-36) IU/L ALT 21 (9-52) IU/L Alkaline Phosphatase 73 (38-126) U/L Total Creatine Kinase 170 H (30-135) U/L CK-MB (CK-2) 2.33 (<2.37) ng/mL CK-MB (CK-2) Rel Index 1.4 L (1.5-5.0) % Troponin I < 0.012 (0.01-0.034) ng/mL Total Protein 7.7 (6.3-8.2) g/dL Albumin 4.2 (3.5-5.0) g/dL Globulin 3.5 (1.7-4.1) g/dL Albumin/Globulin Ratio 1.2 (1.0-2.8) Amylase (30-110) U/L Lipase 36 (23-300) U/L Procalcitonin (<0.5) ng/mL Urine Color Urine Appearance Urine pH (4.5-8.0) Ur Specific [place] (1.000-1.035) Urine Protein (Negative) Urine Glucose (UA) (Negative) g/dL Urine Ketones (NEGATIVE) Urine Occult Blood (Negative) Urine Nitrate (Negative) Urine Bilirubin (NEGATIVE) Urine Urobilinogen (0.2) E.U./dL Ur Leukocyte Esterase (NEGATIVE) Urine RBC (0-5/HPF) Urine WBC (0-5/HPF) Ur Squamous Epith Cells (0-5/HPF) Urine Bacteria (None) Ur Culture Indicated? Urine Test (Negative) Influenza A & B (PCR) (Negative) 06/13/19 06/13/19 06/13/19 Range/Units 14:50 14:50 14:50 WBC (4.5-11.0) X10^3/uL RBC (4.0-5.2) X10^6/uL Hgb (12.0-16.0) g/dL Hct (36-46) % MCV (80-100) fL MCH (26-34) PG MCHC (30-36) % RDW (11.6-14.8) % Plt Count (150-400) X10^3/uL Neut % (Auto) (50-75) % Lymph % (Auto) (25-40) % [place] % (Auto) (3-14) % Eos % (Auto) (2-4) % Baso % (Auto) (0-2) % Neut # (Auto) (4752-4723) /uL Lymph # (Auto) (9385-8190) /uL [place] # (Auto) (0-900) /uL Eos # (Auto) (0-450) /uL Baso # (Auto) (0-100) /uL PT (10.1-12.7) SECONDS INR (0.9-1.3) APTT (26.4-36.2) SECONDS D-Dimer (<230) ng/mL Sodium (137-145) mmol/L Potassium (3.4-5.1) mmol/L Chloride (98-107) mmol/L Carbon Dioxide (22-32) mmol/L BUN (7-17) mg/dL Creatinine (0.52-1.04) mg/dL Estimated GFR (>60) mL/min BUN/Creatinine Ratio (6-22) Glucose (70-100) mg/dL Calcium (8.4-10.2) mg/dL Total Bilirubin (0.2-1.3) mg/dL AST (14-36) IU/L ALT (9-52) IU/L Alkaline Phosphatase (38-126) U/L Total Creatine Kinase (30-135) U/L CK-MB (CK-2) (<2.37) ng/mL CK-MB (CK-2) Rel Index (1.5-5.0) % Troponin I (0.01-0.034) ng/mL Total Protein (6.3-8.2) g/dL Albumin (3.5-5.0) g/dL Globulin (1.7-4.1) g/dL Albumin/Globulin Ratio (1.0-2.8) Amylase 52 (30-110) U/L Lipase (23-300) U/L Procalcitonin 0.12 (<0.5) ng/mL Urine Color Urine Appearance Urine pH (4.5-8.0) Ur Specific [place] (1.000-1.035) Urine Protein (Negative) Urine Glucose (UA) (Negative) g/dL Urine Ketones (NEGATIVE) Urine Occult Blood (Negative) Urine Nitrate (Negative) Urine Bilirubin (NEGATIVE) Urine Urobilinogen (0.2) E.U./dL Ur Leukocyte Esterase (NEGATIVE) Urine RBC (0-5/HPF) Urine WBC (0-5/HPF) Ur Squamous Epith Cells (0-5/HPF) Urine Bacteria (None) Ur Culture Indicated? Urine Test (Negative) Influenza A & B (PCR) Negative (Negative) 06/13/19 06/13/19 Range/Units 14:50 17:45 WBC (4.5-11.0) X10^3/uL RBC (4.0-5.2) X10^6/uL Hgb (12.0-16.0) g/dL Hct (36-46) % MCV (80-100) fL MCH (26-34) PG MCHC (30-36) % RDW (11.6-14.8) % Plt Count (150-400) X10^3/uL Neut % (Auto) (50-75) % Lymph % (Auto) (25-40) % [place] % (Auto) (3-14) % Eos % (Auto) (2-4) % Baso % (Auto) (0-2) % Neut # (Auto) (4270-2720) /uL Lymph # (Auto) (8008-1182) /uL [place] # (Auto) (0-900) /uL Eos # (Auto) (0-450) /uL Baso # (Auto) (0-100) /uL PT (10.1-12.7) SECONDS INR (0.9-1.3) APTT (26.4-36.2) SECONDS D-Dimer 375 H (<230) ng/mL Sodium (137-145) mmol/L Potassium (3.4-5.1) mmol/L Chloride (98-107) mmol/L Carbon Dioxide (22-32) mmol/L BUN (7-17) mg/dL Creatinine (0.52-1.04) mg/dL Estimated GFR (>60) mL/min BUN/Creatinine Ratio (6-22) Glucose (70-100) mg/dL Calcium (8.4-10.2) mg/dL Total Bilirubin (0.2-1.3) mg/dL AST (14-36) IU/L ALT (9-52) IU/L Alkaline Phosphatase (38-126) U/L Total Creatine Kinase 148 H (30-135) U/L CK-MB (CK-2) 2.44 H (<2.37) ng/mL CK-MB (CK-2) Rel Index 1.6 (1.5-5.0) % Troponin I 0.020 (0.01-0.034) ng/mL Total Protein (6.3-8.2) g/dL Albumin (3.5-5.0) g/dL Globulin (1.7-4.1) g/dL Albumin/Globulin Ratio (1.0-2.8) Amylase (30-110) U/L Lipase (23-300) U/L Procalcitonin (<0.5) ng/mL Urine Color Urine Appearance Urine pH (4.5-8.0) Ur Specific [place] (1.000-1.035) Urine Protein (Negative) Urine Glucose (UA) (Negative) g/dL Urine Ketones (NEGATIVE) Urine Occult Blood (Negative) Urine Nitrate (Negative) Urine Bilirubin (NEGATIVE) Urine Urobilinogen (0.2) E.U./dL Ur Leukocyte Esterase (NEGATIVE) Urine RBC (0-5/HPF) Urine WBC (0-5/HPF) Ur Squamous Epith Cells (0-5/HPF) Urine Bacteria (None) Ur Culture Indicated? Urine Test (Negative) Influenza A & B (PCR) (Negative) Discharge Plan Departure Patient Disposition: Home Clinical Impression: Pyelonephritis Discharge Date/Time: 06/13/19 19:43 Instructions: DI for Kidney Infection Activity Restrictions/Additional Instructions: Today we found an infection in her urine. I believe that this is making you ill. I have given you a prescription for an antibiotic as well as a nausea medicine. Please follow up with your primary care provider in the next few days. We have a urine culture pending at this time. Please come back to emergency department for any acute concerns such as inability to keep down fluids. Prescriptions: New ondansetron 4 mg tablet,disintegrating 4 mg PO Q6H PRN (Reason: nausea and vomiting) Qty: 20 RF: 0 ciprofloxacin HCl [Cipro] 500 mg tablet 500 mg PO BID Qty: 14 RF: 0 No Action lisinopril 10 mg tablet 10 mg PO DAILY Qty: 30 RF: 6 acetaminophen [Tylenol Arthritis Pain] 650 mg tablet extended release 650 mg PO ONCE RF: 0 Excedrin Tension Headache 500-65 mg tablet 1 tab PO Q6H PRNRF: 0 meloxicam 15 mg tablet 15 mg PO DAILY Qty: 20 RF: 0 Referrals: Marleny Benavides MD [Primary Care Provider] - <Eliezer Canales DO - Last Filed: 06/14/19 07:04> Sign Out Provider Sign Out Attestation: I was available for consultation during this patient's emergency department visit. This chart is signed by myself for administrative purposes only. I did not have direct contact with this patient during this visit. They were seen independently by the APC.
[2019-06-13 16:09] LABS: Procalcitonin 0.12 ng/mL (<0.5)
[2019-06-13 16:43] LABS: D Dimer 375 ng/mL (<230)
[2019-06-13 18:01] LABS: Creatine Kinase 148 U/L (30-135)
[2019-06-13] MEDS: CIPROFLOXACIN 500 MG TABLET PO (18:06)
[2019-06-13 18:17] LABS: CKMB % Relative Index 1.6 % (1.5-5.0); Creatine Kinase MB 2.44 ng/mL (<2.37)
[2019-06-13] MEDS: ACETAMINOPHEN 325 MG TABLET 975 MG PO (19:18)
== END 2019-06-13 19:43 | disposition home or self-care (01) ==
PROVIDERS: Emergency Medicine; Emergency Provider Nurse Practitioner Family; PCP Hospitalist
DX: N12 Tubulo-interstitial nephritis, not specified as acute or chronic (principal); R10.9 Unspecified abdominal pain; R50.9 Fever, unspecified; R30.0 Dysuria; R07.9 Chest pain, unspecified
CPT/HCPCS: 36415; 71045; 80053; 81001; 81025; 82150; 82550; 82553; 83690; 84145; 84484; 85025; 85379; 85610; 85730; 87077; 87086; 87186; 87400; 87502; 93005; 96361; 96374; 96375; 96376; 99283; 99285; J1885; J2270; J2405

== ENCOUNTER → 2019-06-21 15:24 | Outpatient (CLI) | payer OTHER, MEDICAID, SELFPAY ==
[2019-06-21 15:45] LABS: Bacteria Urine None Seen
[2019-06-21 15:57] LABS: Add Manual Diff / Slide Review NO; Basophils Absolute Auto 200 /uL (0-100); Basophils Percent Auto 1.3 % (0-2); Eosinophils Absolute Auto 500 /uL (0-450); Eosinophils Percent Auto 3.6 % (2-4); Hematocrit 48.7 % (36-46); Hemoglobin 16.1 g/dL (12.0-16.0); Lymphocytes Absolute Auto 3900 /uL (1100-4500); Mean Corpuscular HGB Conc 33.1 % (30-36); Mean Corpuscular Hemoglobin 29.5 PG (26-34); Mean Corpuscular Volume 89.1 fL (80-100); Monocytes Absolute Auto 1100 /uL (0-900); Monocytes Percent Auto 8.5 % (3-14); Neutrophils Absolute Auto 7400 /uL (1500-7000); Neutrophils Percent Auto 56.6 % (50-75); Platelet Count 443 X10^3/uL (150-400); Red Blood Cell Count 5.47 X10^6/uL (4.0-5.2); Red Cell Distribution Width 13.6 % (11.6-14.8); White Blood Cell Count 13.1 X10^3/uL (4.5-11.0)
[2019-06-21 16:09] LABS: Appearance Urine UA Slightly Cloudy; Bilirubin Urine UA NEGATIVE (NEGATIVE); Color Urine UA YELLOW; Glucose Urine UA NEGATIVE (Negative); Ketones Urine UA NEGATIVE (NEGATIVE); Leukocyte Esterase Urine UA NEGATIVE (NEGATIVE); Nitrite Urine UA NEGATIVE (Negative); Occult Blood Urine UA 1+ (Negative); Protein Urine UA 1+ (Negative); Urobilinogen Urine UA 0.2 E.U./dL (0.2)
[2019-06-21 16:13] LABS: RBC Urine 1-5/HPF (0-5/HPF); Squamous Epithelial Cell Urine 1-5 /HPF (0-5/HPF); WBC Urine 1-5/HPF (0-5/HPF)
[2019-06-21 16:14] LABS: Culture Indicated Urine Cult Not Indicated; Hyaline Casts Urine 0-1/LPF; Mucus Urine 1+ (Negative)
[2019-06-21 16:17] LABS: Blood Urea Nitrogen 16 mg/dL (7-17); Carbon Dioxide 28 mmol/L (22-32); Chloride 100 mmol/L (98-107); Estimated Glomerular Filt Rate > 60.0 mL/min (>60); Glucose 109 mg/dL (70-100); HEMOLYSIS < 15 (0-50); Potassium 4.6 mmol/L (3.4-5.1); Sodium 138 mmol/L (137-145)
== END ==
PROVIDERS: PCP Hospitalist; Visit Provider Hospitalist
DX: N12 Tubulo-interstitial nephritis, not specified as acute or chronic (principal); I10 Essential (primary) hypertension
CPT/HCPCS: 36415; 80048; 81001; 85025

== ENCOUNTER → 2019-06-30 15:01 | Outpatient (CLI) | payer OTHER, MEDICAID, SELFPAY ==
[2019-06-30 15:29] LABS: Add Manual Diff / Slide Review NO; Basophils Absolute Auto 100 /uL (0-100); Basophils Percent Auto 1.1 % (0-2); Eosinophils Absolute Auto 300 /uL (0-450); Eosinophils Percent Auto 2.3 % (2-4); Hematocrit 45.8 % (36-46); Hemoglobin 15.6 g/dL (12.0-16.0); Lymphocytes Absolute Auto 3200 /uL (1100-4500); Lymphocytes Percent Auto 27.3 % (25-40); Mean Corpuscular Volume 88.3 fL (80-100); Monocytes Absolute Auto 800 /uL (0-900); Monocytes Percent Auto 6.9 % (3-14); Neutrophils Absolute Auto 7300 /uL (1500-7000); Neutrophils Percent Auto 62.4 % (50-75); Platelet Count 320 X10^3/uL (150-400); Red Blood Cell Count 5.19 X10^6/uL (4.0-5.2); Red Cell Distribution Width 13.8 % (11.6-14.8); White Blood Cell Count 11.7 X10^3/uL (4.5-11.0)
== END ==
PROVIDERS: PCP Hospitalist; Visit Provider Hospitalist
DX: N12 Tubulo-interstitial nephritis, not specified as acute or chronic (principal)
CPT/HCPCS: 36415; 85025

== ENCOUNTER → 2019-07-07 15:54 | Outpatient (CLI) | payer OTHER, MEDICAID, SELFPAY | PROVIDERS: PCP Hospitalist; Visit Provider Hospitalist | DX: N12 Tubulo-interstitial nephritis, not specified as acute or chronic (principal) | CPT/HCPCS: 87086 ==

== ENCOUNTER → 2019-07-21 12:52 | Outpatient (CLI) | payer OTHER, MEDICAID, SELFPAY ==
--- NOTE | 2019-07-21 13:08 | DI.MRI.S_ITS ---
PROCEDURE: MR KNEE LT WO CON INDICATIONS: Left Knee pain and swelling TECHNIQUE: Noncontrast sagittal PD fast spin echo and T2 fast spin echo with fat saturation, sagittal 3-D FLASH with fat saturation; coronal T1 spin echo and PD fast spin echo with fat saturation, and axial PD fast spin echo with fat saturation through the knee. COMPARISON: None. FINDINGS: Image quality: Excellent. Menisci: Medial meniscal tear involving the body and posterior horn. Lateral meniscus intact. Cruciate ligaments: Anterior cruciate ligament appears mildly thickened with T2 hyperintense intrasubstance signal change. Posterior cruciate ligament appears intact. Medial structures: The medial collateral ligament appears intact. Semimembranosus tendon appears intact. Visualized portions of the pes anserinus tendons appear normal. No abnormal bursal fluid. Lateral structures: The lateral collateral ligament intact. Biceps femoris tendon appears intact. Popliteus tendon grossly unremarkable. Iliotibial band appears intact. Anterior structures: Quadriceps tendon intact. Medial and lateral patellofemoral ligaments intact. There is mild patellar tendinopathy. Prepatellar and superficial infrapatellar subcutaneous edema/fluid. Bones and cartilage: No focal marrow contusion or discrete low signal fracture line. Within the medial compartment, mild diffuse partial thickness loss of the femorotibial articular cartilage Within the lateral compartment, minimal signal change in weight bearing central to the cartilage. The femoral cartilage appears grossly intact. Within the patellofemoral compartment, diffuse surface fraying of the patellar and femoral trochlear cartilage without focal defect. Joint space: Small joint effusion. Incidentally noted ligamentum mucosum within Hoffa's fat pad No Ashton's cyst. No specific evidence of intra-articular loose body. IMPRESSION: Medial meniscal tear involving the body and posterior horn, with partial extrusion Intrasubstance signal changes of the ACL suggestive of low-grade sprain versus early mucoid degeneration. Mild diffuse patellar tendinopathy Small joint effusion Degenerative joint disease as above. Dictated by: Aman Sinclair M.D. on 07/21/2019 at 14:34 Approved by: Aman Sinclair M.D. on 07/21/2019 at 14:42
== END ==
PROVIDERS: PCP Hospitalist; Visit Provider Hospitalist
DX: M25.562 Pain in left knee (principal); S83.242A Other tear of medial meniscus, current injury, left knee, initial encounter; M17.12 Unilateral primary osteoarthritis, left knee; M25.462 Effusion, left knee
CPT/HCPCS: 73721

== ENCOUNTER 2019-07-25 13:23 | Emergency (ER) | payer OTHER, MEDICAID, SELFPAY ==
[2019-07-25 13:24] VITALS: BP 196/114; PULSE 99; RESP 18; TEMP 36.1; O2SAT 98; BMI 36.0
--- NOTE | 2019-07-25 13:52 | DI.RAD.S_ITS ---
PROCEDURE: XR CHEST 1V INDICATIONS: chest pain TECHNIQUE: One view of the chest was acquired. COMPARISON: [facility], CR, XR CHEST 1V, 06/13/2019, 14:51. FINDINGS: Surgical changes and devices: None. Lungs and pleura: Lungs are clear. No pleural effusions or pneumothorax. Mediastinum: Mediastinal contours appear normal. Heart size is normal. Bones and chest wall: No suspicious bony lesions. Overlying soft tissues appear unremarkable. IMPRESSION: No acute pulmonary process. Dictated by: Jona Craven M.D. on 07/25/2019 at 14:23 Approved by: Joan Craven M.D. on 07/25/2019 at 14:24
[2019-07-25 14:00] VITALS: BP 196/102; PULSE 93; RESP 15; O2SAT 99
--- NOTE | 2019-07-25 14:17 | ED.CHESTPAIN ---
HPI - Chest Pain General Chief Complaint: Chest Pain Stated Complaint: cough, heavy legs, recent kidney infection Time Seen by Provider: 07/25/19 13:39 Source: patient Mode of arrival: Ambulatory History of Present Illness HPI narrative: Patient comes emergency department complaining of cough and chest the last several days. She states she has been on lisinopril for elevated blood pressure for about the last month, and that her cough has developed since starting this medication. Patient states that the cough is nonproductive. She has not had fever or shortness of breath. No chills. No nausea or vomiting. patient states that her blood pressure has not been well controlled the lisinopril at all. She states she has noticed dizziness sometimes when her blood pressure was high, and also, has had a pain in her low back which makes her feel as though her legs are heavy. However, she has not had difficulty ambulating. No loss of bowel or bladder control. No other complaints at this time. Related Data Previous Rx's Medication Instructions Recorded lisinopril 10 mg tablet 10 mg PO DAILY #30 tab 06/21/19 omeprazole 20 mg tablet,delayed 20 mg PO DAILY #30 tab 07/19/19 release metoprolol tartrate 50 mg PO Q12H #60 tab 07/25/19 Allergies Allergy/AdvReac Type Severity Reaction Status Date / Time acetaminophen [From VICODIN] AdvReac Unknown NAUSEA Verified 06/21/19 14:49 hydrocodone [From VICODIN] AdvReac Unknown NAUSEA Verified 06/21/19 14:49 ibuprofen [IBUPROFEN] AdvReac Unknown NAUSEA Verified 06/21/19 14:49 Review of Systems Constitutional Constitutional: Denies chills, Denies fatigue, Denies fever(s), Denies frequent falls, Denies lethargy and Denies weakness Eyes Eyes: Denies change in vision, Denies eye discharge, Denies irritation and Denies loss of vision ENT Ears, Nose, Mouth, and Throat: Denies change in voice, Denies dizziness, Denies neck pain, Denies sore throat and Denies throat swelling Cardiovascular Cardiovascular: Denies chest pain, Denies irregular heart rhythm, Denies lightheadedness, Denies palpitations, Denies dyspnea, Denies dyspnea on exertion and Denies orthopnea Comments: Chest tightness Respiratory Respiratory: Reports cough, Denies dyspnea, Denies dyspnea on exertion and Denies wheezing Gastrointestinal Gastrointestinal: Denies abdominal pain, Denies change in bowel habits, Denies diarrhea, Denies nausea and Denies vomiting Genitourinary Genitourinary: Denies hematuria, Denies flank pain, Denies urinary incontinence and Denies urinary urgency Musculoskeletal Musculoskeletal: Reports back pain, Denies muscle weakness, Denies neck pain, Denies numbness and Denies tingling Integumentary/Breasts Skin/Breast: Denies pruritus, Denies erythema, Denies rash and Denies wounds Neurologic Neurologic: Denies behavioral changes, Denies confusion, Denies dizziness, Denies frequent falls, Denies loss of vision, Denies numbness, Denies tingling and Denies weakness Psychiatric Psychiatric: Denies anxiety, Denies behavioral changes, Denies confusion, Denies depression, Denies homicidal ideation and Denies suicidal ideation Endocrine Endocrine: Denies fatigue, Denies flushing and Denies palpitations Hematologic/Lymphatic Hematologic/Lymphatic: Denies easy bruising Allergic/Immunologic Allergic/Immunologic: Denies urticaria, Denies throat swelling and Denies wheezing Patient History Medical History Arthralgia of knee (Acute) Healthy adult (Acute) HTN (hypertension) (Acute) Obesity (Acute) Social History Smoking Status: Current every day smoker Substance Use Type: does not use Exam Initial Vital Signs Initial Vital Signs: Vital Signs Temperature 97.0 F L 07/25/19 13:24 Pulse Rate 99 H 07/25/19 13:24 Respiratory Rate 18 07/25/19 13:24 Blood Pressure 196/114 H 07/25/19 13:24 Pulse Oximetry 98 07/25/19 13:24 Const General: cooperative and well developed Nutritional Appearance: well nourished Orientation: alert, awake, oriented x3 and not confused [facility] Head: normocephalic and atraumatic Ears: external ears normal Nose: external nose normal and No nasal discharge Face and sinus: face symmetric and No dry mucous membranes Mouth: oral mucosae normal and moist mucous membranes Teeth and gingiva: dentition normal Eyes General: appearance normal, both eyes and all related structures Eyelids: eyelids normal Conjunctivae: conjunctivae normal Sclera: sclerae normal Pupils: PERRL EOM: EOM intact bilaterally Neck Neck: normal visual inspection, trachea midline, No lymphadenopathy, No midline deformity and No JVD Lymphatic: No lymphedema Chest Chest: normal inspection of the chest Resp Effort & Inspection: normal respiratory effort, able to speak in complete sentences, no respiratory distress and no use of accessory muscles Auscultation: clear to auscultation bilaterally, no rales, no rhonchi and no wheezes Cardio Rate: regular rate Rhythm: regular rhythm Heart Sounds: no click, no gallops, no murmurs and no rubs Pulses: normal peripheral pulses GI Inspection: non-distended Palpation: soft, no hepatosplenomegaly, No guarding, No pulsatile mass and No tender Auscultation: normal bowel sounds Back/Spine/Pelvis Back: No CVA tenderness Cervical Spine: cervical ROM normal and No pain with cervical ROM Thoracic/Lumbar Spine: thoracic and lumbar spine normal to inspection Skin General: no rashes or lesions noted, No jaundice and No petechiae Neuro General: alert, oriented x3, gait normal and no focal motor deficits Speech: speech normal Extrem General: full ROM, no clubbing, cyanosis or edema, no pedal edema and no calf tenderness Psych Appearance: well kempt Mental Status: mental status grossly normal Attitude: cooperative Thought Content: normal and suicidality Judgment: judgment good Course Course Course Narrative: The patient seemed to be having an adverse reaction to her lisinopril, and I did feel that she would most likely be better off with a different agent. The patient was not in hypertensive emergency, but I gave her labetalol in the emergency department to see if this would be effective for her. The patient's blood pressure did come down nicely with this, and I did give her prescription for metoprolol for at home. I have advised her also that she needs to call her primary care physician 1st thing tomorrow to set up a follow-up appointment to determine whether this a good long-term medication for her. We have discussed home management of symptoms, as well as the usual indications for return. Orders Ordered: Discontinued Medications Sodium Chloride (Normal Saline 0.9%) 1,000 mls @ 1,000 mls/hr IV BOLUS ONE Stop: 07/25/19 15:14 Last Infusion: 07/25/19 15:44 Dose: 0 mls/hr Documented by: Admin: 07/25/19 14:29 Dose: 1,000 mls/hr Documented by: THEA Labetalol HCl (Trandate) 20 mg IV NOW ONE Stop: 07/25/19 14:12 Last Admin: 07/25/19 14:29 Dose: 20 mg Documented by: THEA Vital Signs Vital signs: Vital Signs - 8 hr 07/25/19 13:24 Temperature 97.0 F L Pulse Rate 99 H Respiratory Rate 18 Blood Pressure 196/114 H Pulse Oximetry 98 MDM - Chest Pain Medical Records Data Attestation: I reviewed the patient's medical records. Lab Data Attestation: I reviewed the patient's lab results. Result diagrams: 07/25/19 14:20 07/25/19 14:20 Labs: Lab Results 07/25/19 07/25/19 07/25/19 Range/Units 14:20 14:20 14:20 WBC 11.1 H (4.5-11.0) X10^3/uL RBC 4.98 (4.0-5.2) X10^6/uL Hgb 15.0 (12.0-16.0) g/dL Hct 43.7 (36-46) % MCV 87.8 (80-100) fL MCH 30.1 (26-34) PG MCHC 34.3 (30-36) % RDW 13.8 (11.6-14.8) % Plt Count 280 (150-400) X10^3/uL Neut % (Auto) 50.9 (50-75) % Lymph % (Auto) 33.7 (25-40) % [place] % (Auto) 11.4 (3-14) % Eos % (Auto) 2.8 (2-4) % Baso % (Auto) 1.2 (0-2) % Neut # (Auto) 5700 (2041-0465) /uL Lymph # (Auto) 3800 (7076-1539) /uL [place] # (Auto) 1300 H (0-900) /uL Eos # (Auto) 300 (0-450) /uL Baso # (Auto) 100 (0-100) /uL PT 11.6 (10.1-12.7) SECONDS INR 1.0 (0.9-1.3) APTT 35 (26.4-36.2) SECONDS Sodium 138 (137-145) mmol/L Potassium 4.1 (3.4-5.1) mmol/L Chloride 104 (98-107) mmol/L Carbon Dioxide 27 (22-32) mmol/L BUN 16 (7-17) mg/dL Creatinine 1.10 H (0.52-1.04) mg/dL Estimated GFR 54.2 L (>60) mL/min BUN/Creatinine Ratio 14.5 (6-22) Glucose 118 H (70-100) mg/dL Calcium 9.4 (8.4-10.2) mg/dL Total Bilirubin 0.5 (0.2-1.3) mg/dL AST 30 (14-36) IU/L ALT 14 (<35) IU/L Alkaline Phosphatase 66 (38-126) U/L Total Creatine Kinase 829 H (30-135) U/L CK-MB (CK-2) 2.20 (<2.37) ng/mL CK-MB (CK-2) Rel Index 0.3 L (1.5-5.0) % Troponin I < 0.012 (0.01-0.034) ng/mL Total Protein 7.6 (6.3-8.2) g/dL Albumin 4.1 (3.5-5.0) g/dL Globulin 3.5 (1.7-4.1) g/dL Albumin/Globulin Ratio 1.2 (1.0-2.8) Lipase 77 (23-300) U/L ECG Data Attestation: I personally reviewed and interpreted this ECG as follows: (See below) Interpretation: Twelve lead EKG performed July 25, 2019 at 2:32 p.m., as follows: Regular ventricular rhythm with a rate of 86 beats per minute OH interval 148 milliseconds QRS duration 103 millisecond QTC interval [address] T wave changes Interpretation: Normal sinus rhythm; indeterminate axis; possible right ventricular hypertrophy; no signs of acute ischemia; abnormal EKG as interpreted by ED MD. Discharge Plan Departure Patient Disposition: Home Clinical Impression: History of uncontrolled hypertension Discharge Date/Time: 07/25/19 15:45 Instructions: DI for High Blood Pressure Activity Restrictions/Additional Instructions: Your labs look good. Your blood pressure has come down very nicely with the medication we have given you in the ER, and we will give you an oral medication in the same family to take instead of the lisinopril. Please take the medication, as directed, and make an appointment to see her new primary care physician as soon as possible. Prescriptions: New metoprolol tartrate 50 mg tablet 50 mg PO Q12H Qty: 60 RF: 0 No Action omeprazole 20 mg tablet,delayed release (DR/EC) 20 mg PO DAILY Qty: 30 RF: 3 lisinopril 10 mg tablet 10 mg PO DAILY Qty: 30 RF: 3 Referrals: Angel Canchola DO [Primary Care Provider] -
[2019-07-25 14:28] LABS: Add Manual Diff / Slide Review NO; Basophils Absolute Auto 100 /uL (0-100); Basophils Percent Auto 1.2 % (0-2); Eosinophils Absolute Auto 300 /uL (0-450); Eosinophils Percent Auto 2.8 % (2-4); Hematocrit 43.7 % (36-46); Lymphocytes Absolute Auto 3800 /uL (1100-4500); Lymphocytes Percent Auto 33.7 % (25-40); Mean Corpuscular HGB Conc 34.3 % (30-36); Mean Corpuscular Hemoglobin 30.1 PG (26-34); Mean Corpuscular Volume 87.8 fL (80-100); Monocytes Absolute Auto 1300 /uL (0-900); Monocytes Percent Auto 11.4 % (3-14); Neutrophils Absolute Auto 5700 /uL (1500-7000); Neutrophils Percent Auto 50.9 % (50-75); Platelet Count 280 X10^3/uL (150-400); Red Blood Cell Count 4.98 X10^6/uL (4.0-5.2); Red Cell Distribution Width 13.8 % (11.6-14.8); White Blood Cell Count 11.1 X10^3/uL (4.5-11.0)
[2019-07-25 14:29] VITALS: BP 196/112; PULSE 94
[2019-07-25] MEDS: LABETALOL 20 MG/4 ML SYRINGE IV (14:29)
[2019-07-25] MEDS: SODIUM CHLORIDE 0.9% 1,000 ML 1000 ML IV (14:29)
[2019-07-25 14:34] LABS: Prothrombin Time 11.6 SECONDS (10.1-12.7)
[2019-07-25 14:37] LABS: PTT Partial Thromboplastin Tim 35 SECONDS (26.4-36.2)
[2019-07-25 14:38] LABS: Alanine Aminotransferase 14 IU/L (<35); Albumin 4.1 g/dL (3.5-5.0); Albumin Globulin Ratio 1.2 (1.0-2.8); Alkaline Phosphatase 66 U/L (38-126); Aspartate Aminotransferase 30 IU/L (14-36); BUN Creatinine Ratio 14.5 (6-22); Bilirubin Total 0.5 mg/dL (0.2-1.3); Blood Urea Nitrogen 16 mg/dL (7-17); Calcium 9.4 mg/dL (8.4-10.2); Carbon Dioxide 27 mmol/L (22-32); Chloride 104 mmol/L (98-107); Creatine Kinase 829 U/L (30-135); Estimated Glomerular Filt Rate 54.2 mL/min (>60); Globulin 3.5 g/dL (1.7-4.1); Glucose 118 mg/dL (70-100); HEMOLYSIS < 15 (0-50); Lipase 77 U/L (23-300); Potassium 4.1 mmol/L (3.4-5.1); Sodium 138 mmol/L (137-145); Total Protein 7.6 g/dL (6.3-8.2)
--- NOTE | 2019-07-25 14:44 | PC.NURSE ---
Patient reports she was recently placed on lisinopril for high BP and has been experiencing dry cough, heavy legs, weakness/fatigue, and occasional chest discomfort.
[2019-07-25 14:45] VITALS: BP 139/75; PULSE 70; RESP 16; O2SAT 94
[2019-07-25 14:50] LABS: Troponin I < 0.012 ng/mL (0.01-0.034)
[2019-07-25 14:54] LABS: CKMB % Relative Index 0.3 % (1.5-5.0)
[2019-07-25 15:10] VITALS: BP 139/55; PULSE 71
[2019-07-25 15:44] VITALS: BP 139/55; PULSE 69; RESP 16; O2SAT 95
== END 2019-07-25 15:45 | disposition home or self-care (01) ==
PROVIDERS: Emergency Provider Emergency Medicine; PCP Family Medicine
DX: Z86.79 Personal history of other diseases of the circulatory system (principal); R07.9 Chest pain, unspecified; R05 Cough; I10 Essential (primary) hypertension
CPT/HCPCS: 36415; 71045; 80053; 82550; 82553; 83690; 84484; 85025; 85610; 85730; 93005; 96361; 96374; 99283; 99285

== ENCOUNTER 2019-09-24 05:04 | Emergency (ER) | payer OTHER, MEDICAID, SELFPAY ==
--- NOTE | 2019-09-24 05:08 | ED.GENADULT ---
HPI - General Adult General Chief complaint: Skin/Abscess/Foreign Body Stated complaint: patient states rt foot cellulitis Time Seen by Provider: 09/24/19 05:05 Source: patient Mode of arrival: Ambulatory Limitations: no limitations History of Present Illness HPI narrative: 43-year-old female here for evaluation which she thinks is cellulitis in her right foot. She was seen earlier this month for similar symptoms by her primary providers office. Was placed on Augmentin. She states she finished the course of that. She felt that the redness during that time as improved. No fevers. She has had cellulitis in her right and left foot in the past. States over the past couple days she has noticed redness and swelling to her right foot that is worsened. Related Data Previous Rx's Medication Instructions Recorded omeprazole 20 mg tablet,delayed 20 mg PO DAILY #30 tab 07/19/19 release metoprolol tartrate 50 mg PO Q12H #60 tab 07/25/19 losartan 50 mg tablet 50 mg PO DAILY #60 tab 08/11/19 amlodipine 2.5 mg tablet 2.5 mg PO DAILY #30 tab 09/02/19 amoxicillin 875 mg tablet 875 mg PO BID #14 tab 09/02/19 doxycycline hyclate 100 mg PO BID 7 Days #14 tab 09/24/19 Allergies Allergy/AdvReac Type Severity Reaction Status Date / Time acetaminophen [From VICODIN] AdvReac Unknown NAUSEA Verified 09/02/19 08:49 hydrocodone [From VICODIN] AdvReac Unknown NAUSEA Verified 09/02/19 08:49 ibuprofen [IBUPROFEN] AdvReac Unknown NAUSEA Verified 09/02/19 08:49 Review of Systems Constitutional Constitutional: Denies fever(s) Musculoskeletal Musculoskeletal: Denies tingling Comments: Right foot pain Integumentary/Breasts Comments: Redness the skin of the right foot Neurologic Neurologic: Denies tingling Hematologic/Lymphatic Hematologic/Lymphatic: Denies easy bleeding and Denies easy bruising Patient History Medical History Arthralgia of knee (Acute) Healthy adult (Acute) HTN (hypertension) (Acute) Obesity (Acute) Social History Smoking Status: Current every day smoker Smoking Status: Current every day smoker Substance Use Type: does not use Exam Initial Vital Signs Initial Vital Signs: Vital Signs Temperature 98.5 F 09/24/19 05:17 Pulse Rate 106 H 09/24/19 05:17 Respiratory Rate 15 09/24/19 05:17 Blood Pressure 177/90 H 09/24/19 05:17 Pulse Oximetry 98 09/24/19 05:17 Const General: cooperative, healthy appearing and comfortable Cardio Pulses: dorsalis pedis present on the right Skin Other: Redness just posterior to the lateral malleolus and along the lateral aspect of the right foot. Is warm to the touch. Neuro General: alert, awake and oriented x3 Cognition: normal cognition Speech: speech normal Extrem General: normal to inspection Other: Full range of motion right ankle Psych Appearance: grossly normal and well kempt Course Orders Ordered: ED Orders 09/24/19 05:30 Basic Metabolic Panel Stat Complete Blood Count AUTO DIFF Stat Uric Acid Stat Discontinued Medications Doxycycline Hyclate (Vibramycin) 100 mg PO NOW ONE Stop: 09/24/19 05:59 Vital Signs Vital signs: Vital Signs - 8 hr 09/24/19 05:17 Temperature 98.5 F Pulse Rate 106 H Respiratory Rate 15 Blood Pressure 177/90 H Pulse Oximetry 98 Medical Decision Making Medical Records Medical records reviewed: Yes I reviewed the patient's medical records. Lab Data Lab results reviewed: Yes I reviewed the patient's lab results. Result diagrams: 09/24/19 05:30 09/24/19 05:30 Labs: Lab Results 09/24/19 09/24/19 09/24/19 Range/Units 05:30 05:30 05:30 WBC 12.2 H (4.5-11.0) X10^3/uL RBC 4.90 (4.0-5.2) X10^6/uL Hgb 14.7 (12.0-16.0) g/dL Hct 43.0 (36-46) % MCV 87.8 (80-100) fL MCH 29.9 (26-34) PG MCHC 34.1 (30-36) % RDW 13.7 (11.6-14.8) % Plt Count 245 (150-400) X10^3/uL Neut % (Auto) 63.1 (50-75) % Lymph % (Auto) 25.2 (25-40) % [place] % (Auto) 8.3 (3-14) % Eos % (Auto) 2.5 (2-4) % Baso % (Auto) 0.9 (0-2) % Neut # (Auto) 7700 H (8354-8472) /uL Lymph # (Auto) 3100 (4696-2837) /uL [place] # (Auto) 1000 H (0-900) /uL Eos # (Auto) 300 (0-450) /uL Baso # (Auto) 100 (0-100) /uL Sodium 138 (137-145) mmol/L Potassium 3.5 (3.4-5.1) mmol/L Chloride 102 (98-107) mmol/L Carbon Dioxide 26 (22-32) mmol/L BUN 13 (7-17) mg/dL Creatinine 0.90 (0.52-1.04) mg/dL Estimated GFR > 60.0 (>60) mL/min BUN/Creatinine Ratio 14.4 (6-22) Glucose 139 H (70-100) mg/dL Uric Acid 4.9 (2.5-6.2) mg/dL Calcium 9.3 (8.4-10.2) mg/dL MDM Narrative Medical decision making narrative: Nontoxic, is afebrile. Does have a leukocytosis. Does have redness and pain to the lateral aspect of the right foot. There is no breaks in the skin. Her uric acid is unremarkable. She has never been diagnosed with gout. Does have fungal infections in her toes. Unsure why she is getting repeated infections in her right foot however I do feel that we should treat her with antibiotics today. Was given a dose of antibiotics prior to discharge in a prescription for the remainder. Of informed to follow up with her primary provider for follow-up. She expressed understanding and agreement with plan. Discharge Plan Departure Patient Disposition: Home Clinical Impression: Cellulitis of right foot Instructions: DI for Cellulitis -- Adult Activity Restrictions/Additional Instructions: Take the antibiotics as directed. Recommend that you follow up with your primary doctor about potential further workup and any specialist consultations if needed. Return to the emergency department for any new or worsening symptoms. the prescription was transmitted electronically to the [facility] in [place] Prescriptions: New doxycycline hyclate 100 mg tablet 100 mg PO BID 7 Days Qty: 14 RF: 0 No Action omeprazole 20 mg tablet,delayed release (DR/EC) 20 mg PO DAILY Qty: 30 RF: 3 losartan 50 mg tablet 50 mg PO DAILY Qty: 60 RF: 0 amoxicillin 875 mg tablet 875 mg PO BID Qty: 14 RF: 0 amlodipine 2.5 mg tablet 2.5 mg PO DAILY Qty: 30 RF: 0 metoprolol tartrate 50 mg tablet 50 mg PO Q12H Qty: 60 RF: 0 Referrals: Angel Canchola DO [Primary Care Provider] -
[2019-09-24 05:17] VITALS: BP 177/90; PULSE 106; RESP 15; TEMP 36.9; O2SAT 98; BMI 36.0
[2019-09-24 05:44] LABS: Add Manual Diff / Slide Review NO; Basophils Absolute Auto 100 /uL (0-100); Basophils Percent Auto 0.9 % (0-2); Eosinophils Absolute Auto 300 /uL (0-450); Eosinophils Percent Auto 2.5 % (2-4); Hemoglobin 14.7 g/dL (12.0-16.0); Lymphocytes Absolute Auto 3100 /uL (1100-4500); Lymphocytes Percent Auto 25.2 % (25-40); Mean Corpuscular HGB Conc 34.1 % (30-36); Mean Corpuscular Hemoglobin 29.9 PG (26-34); Mean Corpuscular Volume 87.8 fL (80-100); Monocytes Absolute Auto 1000 /uL (0-900); Monocytes Percent Auto 8.3 % (3-14); Neutrophils Absolute Auto 7700 /uL (1500-7000); Neutrophils Percent Auto 63.1 % (50-75); Platelet Count 245 X10^3/uL (150-400); Red Cell Distribution Width 13.7 % (11.6-14.8); White Blood Cell Count 12.2 X10^3/uL (4.5-11.0)
[2019-09-24 05:51] LABS: BUN Creatinine Ratio 14.4 (6-22); Blood Urea Nitrogen 13 mg/dL (7-17); Calcium 9.3 mg/dL (8.4-10.2); Carbon Dioxide 26 mmol/L (22-32); Chloride 102 mmol/L (98-107); Estimated Glomerular Filt Rate > 60.0 mL/min (>60); Glucose 139 mg/dL (70-100); HEMOLYSIS < 15 (0-50); Potassium 3.5 mmol/L (3.4-5.1); Sodium 138 mmol/L (137-145)
[2019-09-24 05:52] LABS: Uric Acid 4.9 mg/dL (2.5-6.2)
[2019-09-24] MEDS: DOXYCYCLINE HYCLATE 100 MG TABLET PO (06:04)
[2019-09-24 06:12] VITALS: BP 153/74; PULSE 98; RESP 20; O2SAT 97
== END 2019-09-24 06:19 | disposition home or self-care (01) ==
PROVIDERS: Emergency Provider Emergency Medicine; PCP Family Medicine
DX: L03.115 Cellulitis of right lower limb (principal)
CPT/HCPCS: 36415; 80048; 84550; 85025; 99283

== ENCOUNTER → 2020-06-06 13:27 | Outpatient (CLI) | payer OTHER, MEDICAID, SELFPAY ==
[2020-06-07 14:29] LABS: COVID19 Sendout Not Detected (Not Detect)
== END ==
PROVIDERS: PCP Family Medicine; Visit Provider Physician Assistant
DX: Z03.818 Encounter for observation for suspected exposure to other biological agents ruled out (principal)
CPT/HCPCS: 87635

== ENCOUNTER 2020-12-27 07:44 | Emergency (ER) | payer OTHER, MEDICAID, SELFPAY ==
[2020-12-27] VITALS (9 sets, daily range): BP systolic 192–221; BP diastolic 91–113; PULSE 76–109; RESP 22; TEMP 37.4; O2SAT 96–99
--- NOTE | 2020-12-27 08:05 | ED_ITS ---
HPI - General Adult General Chief complaint: Hypertension Stated complaint: high BP Time Seen by Provider: 12/27/20 07:49 History of Present Illness HPI narrative: 45-year-old woman with a history of significant hypertension, asthma, reflux and minimal interaction with the medical community and providers presents with 24 hours of a sensation that things are quite right, ?feeling off? and noting significantly elevated blood pressure. She describes no overt chest pain but a sensation that ?if she did not pay attention it would turn into pain?. She describes a headache yesterday that is not present today. She does not describe any other acute neurologic findings. She does note some carpal tunnel type symptoms in her right hand over the last 1-2 years. Yesterday she notes that she had brief episodes lasting minutes at a time of random intermittent pain throughout her body she describes finger hurting, than leg hurting. She was not able to be more specific than that. Yesterday she describes an episode where she was leaning over and resting on her right elbow when she had pain and burning sensation across the right side of her back at approximately her bra line. This lasted for 2 hours and was not associated with dyspnea but was associated with nausea and emesis. She states she has a history of chronic lower extremity edema but today notes that she has minimal edema. Her last interaction with physician was a little over a year ago with no continued follow-up not due to COVID. Medications that she had used previously include amlodipine 2.5 mg losartan 50 mg, metoprolol tartrate 50 mg, omeprazole. She notes that she had severe cough with lisinopril and reports that the combination of blood pressure pressure medications ?did nothing at all?. She is currently trying to stop smoking and is on Chantix that have been prescribed almost a year ago. She has had albuterol inhalers in the past but currently is out. Related Data Previous Rx's Medication Instructions Recorded metoprolol tartrate 50 mg PO Q12H #60 tab 07/25/19 amoxicillin 875 mg tablet 875 mg PO BID #14 tab 09/02/19 amlodipine 2.5 mg tablet See Rx Instructions .ROUTE 12/07/19 .COMPLEX #30 tablet losartan 50 mg tablet See Rx Instructions .ROUTE 12/07/19 .COMPLEX #30 tab omeprazole 20 mg tablet,delayed See Rx Instructions .ROUTE 12/07/19 release .COMPLEX #30 tablet amlodipine 5 mg PO DAILY #30 tab 12/27/20 losartan 50 mg PO DAILY #30 tab 12/27/20 metoprolol succinate 100 mg PO .HS #30 tab 12/27/20 Allergies Allergy/AdvReac Type Severity Reaction Status Date / Time acetaminophen [From VICODIN] AdvReac Unknown NAUSEA Verified 12/27/20 08:06 hydrocodone [From VICODIN] AdvReac Unknown NAUSEA Verified 12/27/20 08:06 ibuprofen [IBUPROFEN] AdvReac Unknown NAUSEA Verified 12/27/20 08:06 Review of Systems Review of Systems Narrative: Remainder of review of systems is otherwise unremarkable Patient History Medical History Arthralgia of knee Depression HTN (hypertension) Hyperlipidemia Obesity Family History Mother No problems noted. Social History Smoking Status: Current every day smoker Smoking Status: Current every day smoker Substance Use Type: does not use Exam Narrative Exam Narrative: General: Anxious, mildly dyspneic, Able to speak in full and coherent sentences Well-nourished well-developed HEENT: Moist mucous membranes, normal sclera with reactive pupils, Neck: No JVD, supple Respiratory: Lungs are clear to auscultation, no wheezing no rales no rhonchi. Full and symmetrical air movement Cardiac: Regular rate and rhythm no murmurs no bruits Abdomen: Soft, nontender, good bowel tones, no flank pain Skin: Warm and dry, no rashes Neurologic: Grossly neurologically intact with no obvious asymmetries or abnormalities Extremities: No trauma, well perfused, no lower extremity edema but she does have bilateral chronic venous stasis changes Psych: Anxious, Cooperative, appropriate insight and affect Initial Vital Signs Initial Vital Signs: Vital Signs Pulse Rate 106 H 12/27/20 07:54 Blood Pressure 205/92 H 12/27/20 07:54 Pulse Oximetry 98 12/27/20 07:54 Course Orders Ordered: ED Orders 12/27/20 07:58 EKG-12 Lead Stat 12/27/20 08:05 XR chest 1V Stat 12/27/20 08:20 Complete Blood Count AUTO DIFF Stat Comprehensive Metabolic Panel Stat D Dimer Stat Magnesium Stat Troponin I Stat Discontinued Medications Amlodipine Besylate (Amlodipine 5 Mg Tablet) 5 mg PO NOW ONE Stop: 12/27/20 08:16 Last Admin: 12/27/20 08:43 Dose: 5 mg Documented by: KOSTA Aspirin (Aspirin 81 Mg Chew Tab) 324 mg PO NOW ONE Stop: 12/27/20 08:05 Last Admin: 12/27/20 08:09 Dose: 324 mg Documented by: KOSTA Losartan Potassium (Losartan 50 Mg Tablet) 50 mg PO NOW ONE Stop: 12/27/20 08:16 Last Admin: 12/27/20 08:43 Dose: 50 mg Documented by: KOSTA Metoprolol Tartrate (Metoprolol Ir 25 Mg Tablet) 100 mg PO NOW ONE Stop: 12/27/20 08:16 Last Admin: 12/27/20 08:42 Dose: 100 mg Documented by: KOSTA Vital Signs Vital signs: Vital Signs - 8 hr 12/27/20 07:54 12/27/20 08:00 12/27/20 08:02 Temperature 99.3 F Pulse Rate 106 H 103 H 109 H Respiratory Rate 22 Blood Pressure 205/92 H 221/113 H Pulse Oximetry 98 99 99 12/27/20 08:04 12/27/20 08:30 12/27/20 08:43 Temperature Pulse Rate 104 H 92 H 92 H Respiratory Rate Blood Pressure 205/92 H 198/93 H 198/93 H Pulse Oximetry 97 96 12/27/20 09:00 12/27/20 09:01 12/27/20 09:30 Temperature Pulse Rate 88 93 H 76 Respiratory Rate Blood Pressure 201/91 H 192/92 H Pulse Oximetry 97 97 96 Medical Decision Making Medical Records Medical records reviewed: Yes I reviewed the patient's medical records. Lab Data Lab results reviewed: Yes I reviewed the patient's lab results. Result diagrams: 12/27/20 08:20 12/27/20 08:20 Labs: Lab Results 12/27/20 12/27/20 12/27/20 Range/Units 08:20 08:20 08:20 WBC 12.8 H (4.5-11.0) X10^3/uL RBC 5.05 (4.0-5.2) X10^6/uL Hgb 15.1 (12.0-16.0) g/dL Hct 45.2 (36-46) % MCV 89.5 (80-100) fL MCH 30.0 (26-34) PG MCHC 33.5 (30-36) % RDW 13.5 (11.6-14.8) % Plt Count 252 (150-400) X10^3/uL Neut % (Auto) 62.1 (50-75) % Lymph % (Auto) 24.8 L (25-40) % [place] % (Auto) 9.1 (3-14) % Eos % (Auto) 2.7 (2-4) % Baso % (Auto) 1.3 (0-2) % Neut # (Auto) 8000 H (8633-3239) /uL Lymph # (Auto) 3200 (3270-1405) /uL [place] # (Auto) 1200 H (0-900) /uL Eos # (Auto) 300 (0-450) /uL Baso # (Auto) 200 H (0-100) /uL D-Dimer < 200 (<230) ng/mL Sodium 136 L (137-145) mmol/L Potassium 3.8 (3.4-5.1) mmol/L Chloride 105 (98-107) mmol/L Carbon Dioxide 22 (22-32) mmol/L BUN 17 (7-17) mg/dL Creatinine 0.97 (0.52-1.04) mg/dL Estimated GFR > 60.0 (>60) mL/min BUN/Creatinine Ratio 17.5 (6-22) Glucose 123 H (70-100) mg/dL Calcium 9.2 (8.4-10.2) mg/dL Magnesium 1.6 (1.6-2.3) mg/dL Total Bilirubin 0.4 (0.2-1.3) mg/dL AST 32 (14-36) IU/L ALT 19 (<35) IU/L Alkaline Phosphatase 57 (38-126) U/L Troponin I 0.026 (0.01-0.034) ng/mL Total Protein 7.6 (6.3-8.2) g/dL Albumin 3.9 (3.5-5.0) g/dL Globulin 3.7 (1.7-4.1) g/dL Albumin/Globulin Ratio 1.1 (1.0-2.8) Imaging Data Chest x-ray: Radiologist's Impression: FINDINGS: Surgical changes and devices: None. Lungs and pleura: Lungs are clear. No pleural effusions or pneumothorax. Mediastinum: Mediastinal contours appear normal. Heart size is normal. Bones and chest wall: No suspicious bony lesions. Overlying soft tissues appear unremarkable. IMPRESSION: No evidence acute pulmonary process. Dictated by: Edson Sorensen M.D. on 12/27/2020 at 8:22 ECG Data Attestation: I personally reviewed and interpreted this ECG as follows: Interpretation: Sinus rhythm at a rate of 101 Bifascicular block No acute ischemic changes MDM Narrative Medical decision making narrative: 45-year-old woman with hypertension. It does not appear that she has found the perfect combination for blood pressure control, however she is feeling better. There is no evidence of acute coronary syndrome or myocardial infarction at this time. Will give her prescriptions for amlodipine 5, losartan and metoprolol ER 100 and ask her follow-up with her to be established primary care physician with [facility]. As the 2.5 mg of amlodipine and 50 mg of metoprolol were not adequate controlling her blood pressure even before she discontinue taking them will increase the slightly. Will ask her to check blood pressures regularly. Discharge Plan Departure Patient Disposition: Home Clinical Impression: Chronic hypertension Instructions: DI for High Blood Pressure Activity Restrictions/Additional Instructions: Thank you for coming in today You were not having an acute stroke or heart attack however, your blood pressure really does need to be controlled and you need to be back on your blood pressure medications. All medications have been electronically transmitted to [facility] in [place] for you to brain picker today Please call and schedule an emergency room follow-up to discuss blood pressure issues with a provider at [facility]. The last provider you saw was Dr. Canchola. If you have new or changing symptoms, please feel free to return to the ER Prescriptions: New amlodipine 5 mg tablet 5 mg PO DAILY Qty: 30 RF: 3 metoprolol succinate 100 mg tablet extended release 24 hr 100 mg PO .HS Qty: 30 RF: 3 losartan 50 mg tablet 50 mg PO DAILY Qty: 30 RF: 3 No Action amlodipine 2.5 mg tablet See Rx Instructions .ROUTE .COMPLEX Qty: 30 RF: 1 losartan 50 mg tablet See Rx Instructions .ROUTE .COMPLEX Qty: 30 RF: 5 omeprazole 20 mg tablet,delayed release (/EC) See Rx Instructions .ROUTE .COMPLEX Qty: 30 RF: 5 amoxicillin 875 mg tablet 875 mg PO BID Qty: 14 RF: 0 metoprolol tartrate 50 mg tablet 50 mg PO Q12H Qty: 60 RF: 0 Referrals: Angel Canchola DO [Primary Care Provider] -
--- NOTE | 2020-12-27 08:05 | DI.RAD.S_ITS ---
PROCEDURE: XR CHEST 1V INDICATIONS: chest pain TECHNIQUE: One view of the chest was acquired. COMPARISON: [facility], CR, XR CHEST 1V, 07/25/2019, 13:58. FINDINGS: Surgical changes and devices: None. Lungs and pleura: Lungs are clear. No pleural effusions or pneumothorax. Mediastinum: Mediastinal contours appear normal. Heart size is normal. Bones and chest wall: No suspicious bony lesions. Overlying soft tissues appear unremarkable. IMPRESSION: No evidence acute pulmonary process. Dictated by: Edson Sorensen M.D. on 12/27/2020 at 8:22 Approved by: Edson Sorensen M.D. on 12/27/2020 at 8:22
[2020-12-27] MEDS: ASPIRIN 81 MG CHEW TAB 324 MG PO (08:09)
[2020-12-27 08:29] LABS: Add Manual Diff / Slide Review NO; Basophils Absolute Auto 200 /uL (0-100); Basophils Percent Auto 1.3 % (0-2); Eosinophils Absolute Auto 300 /uL (0-450); Eosinophils Percent Auto 2.7 % (2-4); Hematocrit 45.2 % (36-46); Hemoglobin 15.1 g/dL (12.0-16.0); Lymphocytes Absolute Auto 3200 /uL (1100-4500); Lymphocytes Percent Auto 24.8 % (25-40); Mean Corpuscular HGB Conc 33.5 % (30-36); Mean Corpuscular Volume 89.5 fL (80-100); Monocytes Absolute Auto 1200 /uL (0-900); Monocytes Percent Auto 9.1 % (3-14); Neutrophils Absolute Auto 8000 /uL (1500-7000); Neutrophils Percent Auto 62.1 % (50-75); Platelet Count 252 X10^3/uL (150-400); Red Blood Cell Count 5.05 X10^6/uL (4.0-5.2); Red Cell Distribution Width 13.5 % (11.6-14.8); White Blood Cell Count 12.8 X10^3/uL (4.5-11.0)
[2020-12-27 08:39] LABS: D Dimer < 200 ng/mL (<230)
[2020-12-27 08:40] LABS: Alanine Aminotransferase 19 IU/L (<35); Albumin 3.9 g/dL (3.5-5.0); Albumin Globulin Ratio 1.1 (1.0-2.8); Alkaline Phosphatase 57 U/L (38-126); Aspartate Aminotransferase 32 IU/L (14-36); BUN Creatinine Ratio 17.5 (6-22); Bilirubin Total 0.4 mg/dL (0.2-1.3); Blood Urea Nitrogen 17 mg/dL (7-17); Calcium 9.2 mg/dL (8.4-10.2); Carbon Dioxide 22 mmol/L (22-32); Chloride 105 mmol/L (98-107); Estimated Glomerular Filt Rate > 60.0 mL/min (>60); Globulin 3.7 g/dL (1.7-4.1); Glucose 123 mg/dL (70-100); Magnesium 1.6 mg/dL (1.6-2.3); Potassium 3.8 mmol/L (3.4-5.1); Sodium 136 mmol/L (137-145); Total Protein 7.6 g/dL (6.3-8.2)
[2020-12-27 08:41] LABS: HEMOLYSIS 92 (0-50)
[2020-12-27] MEDS: METOPROLOL IR 25 MG TABLET 100 MG PO (08:42)
[2020-12-27] MEDS: AMLODIPINE 5 MG TABLET PO (08:43)
[2020-12-27] MEDS: LOSARTAN 50 MG TABLET PO (08:43)
[2020-12-27 08:52] LABS: Troponin I 0.026 ng/mL (0.01-0.034)
== END 2020-12-27 10:00 | disposition home or self-care (01) ==
PROVIDERS: Emergency Provider Emergency Medicine; PCP Family Medicine
DX: I10 Essential (primary) hypertension (principal); R07.9 Chest pain, unspecified
CPT/HCPCS: 36415; 71045; 80053; 83735; 84484; 85025; 85379; 93005; 99284